=== PATIENT | female | born 1985 | race Caucasian/White ===

== ENCOUNTER 2016-07-20 06:40 | Emergency (ER) | payer MEDICAID ==
[~2016-07-20] VITALS: Ht 160 cm; Wt 77.6 kg
[~2016-07-20 06:40] MED LIST: AMOX/K CLAV875 M1 PO; AMOXICILLIN500 MG PO; AMOXIL400 MG/52 PO; AUGMENTIN400 MG/5 M PO; AUGMENTIN875 MG PO; AUGMENTIN875TAB PO; AUGMENTINES600 PO; BACTRIM DS1 TAB OR; BACTRIM DS1 TAB PO; BENADRYL 50MG C50 MG PO; BENZONATATE200 MG PO; BUSPAR15 MG PO; BUSPIRONE5 MG PO; CEPHALEXIN500 MG PO; CIPRO500 MG OR; CIPRO500 MG PO; CIPROFLOXACN500 MG PO; DARVOCET-N 100100 MG OR; DENIES CURRENT MEDS; DEPO-MEDROL80 MG/ML IM; DOXYCYC MONO100 M1 OR; DOXYCYC MONO100 MG OR; DOXYCYCL HYC100 MG PO; EXCEDRI1 OR; FIORICET OR; FIORICET PO; FLEXERIL PO; FLONASE NASAL50 MCG; GABAPENTIN400 MG PO; HYDROCO/APAP1 T10 OR; HYDROCO/APAP1 TA9 PO; HYDROCODONE/ACE1 TAB PO; KEFLEX500 M1 PO; KEFLEX500 MG OR; KEFLEX500 MG PO; KETOROLAC10 MG PO; KETOROLAC60 MG/2 ML IM; LISINOPRIL10 MG PO; LOMOTIL2.5 MG OR; LORTAB 10 OR; LORTAB 10 PO; LORTAB 10-325 M1 TAB PO; LORTAB 1010 MG PO; LORTAB 5 OR; LORTAB 5-325 MG1 TAB PO; LORTAB 5/3255 MG PO; LORTAB 7.57.5 MG PO; LORTAB5 OR; LORTAB5 PO; MACROBID100 MG OR; METFORMIN500 M1 OR; METFORMIN500 MG PO; METHERGINE0.2 MG PO; MUCINEX600 MG PO; NAPROSYN500 MG OR; NAPROSYN500 MG PO; NO HOME MEDS; NOVOLOG100 IU/1 M SC; PERCOCET 5/325M1 TAB OR; PERCOCET 5/325M1 TAB PO; PREMARIN1.25 MG OR; PRENATA3 OR; PRENATAL1 TA1 PO; PROAIR HFA IN; PROMETHAZINE25 MG OR; PROVERA2.5 MG OR; RELPAX20 MG OR; REPLAX; ROCEPHIN 2250 MG/VIA IM; RYBIX ODT50 MG PO; SULFATRIM1 ML PO; TESSALON PER100 MG PO; TRAMADOL HCL E100 M1 PO; TRAMADOL HCL50 MG PO; TRAZODONE50 MG PO; TYLENOL # 31 TA1 PO; TYLENOL325 MG OR; TYLOPHEN500 MG PO; ULTRAM50 M1 PO; ULTRAM50 MG OR; VALIUM2 MG PO; ZITHROMAX250 MG PO; ZOFRAN ODT8 MG SL; [UNRECOGNIZED DRUG - OTHER]
[2016-07-20 07:49] LABS: HEMOGLOBIN 13.7 g/dl (12.0-16.0); IMMATURE GRANULOCYTES 0.3 % (0.0-1.0); MEAN CORPUSCULAR HGB 31.3 pG CALC (26.0-32.0); MEAN CORPUSCULAR HGB CONC 35.1 g/L CALC (32.0-36.0); NEUT# 8.96 thou/uL (2.00-7.15); RED BLOOD COUNT 4.38 mill/uL (4.20-5.60); RED CELL DISTRI WIDTH 12.7 % (11.5-15.5)
[2016-07-20 07:54] LABS: URINE BILIRUBIN - DIPSTICK NEGATIVE (NEGATIVE); URINE BLOOD DIPSTICK NEGATIVE (NEGATIVE); URINE CLARITY CLEAR; URINE COLOR YELLOW; URINE GLUCOSE - DIPSTICK >=1000 mg/dL (NEGATIVE); URINE KETONE NEGATIVE (NEGATIVE); URINE LEUK ESTERASE NEGATIVE (NEGATIVE); URINE NITRITE - DIPSTICK NEGATIVE (Negative); URINE PH 5.5 (4.5-8.0); URINE PROTEIN - DIPSTICK NEGATIVE (NEG-TRACE); URINE SPECIFIC GRAVITY <=1.005; URINE UROBILINOGEN - DIPSTICK 0.2 E.U./dL (0.2)
[2016-07-20] MEDS ORDERED: LORTAB 10-325 M1 TAB PO (07:58)
[2016-07-20] MEDS ORDERED: BACTRIM DS1 TAB PO (07:58)
[2016-07-20 08:05] LABS: ALBUMIN 4.1 g/dL (3.2-5.0); ALKALINE PHOSPHATASE 189 u/l (38-126); ANION GAP 17 (6-22 (CALC)); BILIRUBIN, TOTAL 0.4 mg/dL (0.0-1.4); BUN 12 mg/dL (7-17); BUN/CREATININE RATIO 19 (12-20 (CALC)); CALCIUM 9.9 mg/dL (8.4-10.2); CARBON DIOXIDE 22 mmol/l (22-30); CHLORIDE 98 mmol/l (95-108); CREATININE 0.6 mg/dL (0.5-1.0); GFR > 60 ML/MIN (>=60 (CALC)); GFR FOR AFR.AMER. > 60 ML/MIN (>=60 (CALC)); POTASSIUM 4.3 mmol/l (3.5-5.1); SGOT/AST 18 u/l (14-36); SGPT/ALT 28 u/l (9-52); SODIUM 134 mmol/l (137-146); TOTAL PROTEIN 7.2 g/dL (6.3-8.2)
[2016-07-20 08:10] LABS: GLUCOSE 478 mg/dL (65-105)
[2016-07-20 08:18] VITALS: BP 125/90
== END 2016-07-20 08:37 | disposition left against medical advice (07) | DRG 603 ==
LOC: ED 06:40
PROVIDERS: Emergency Medicine
PROC: 0H9HXZZ Drainage of Right Upper Leg Skin, External Approach (ICD-10-PCS; principal; 2016-07-20)
DX: L02.214 Cutaneous abscess of groin (principal); B95.4 Other streptococcus as the cause of diseases classified elsewhere

== ENCOUNTER 2016-08-20 09:10 | Emergency (ER) | payer MEDICAID ==
[~2016-08-20] VITALS: Ht 160 cm; Wt 76.0 kg
[2016-08-20 10:38] LABS: HEMATOCRIT 40.8 % (37.0-47.0); IMMATURE GRANULOCYTES 0.4 % (0.0-1.0); MEAN CELL VOLUME 92.7 fL CALC (80.0-100.0); MEAN CORPUSCULAR HGB 31.8 pG CALC (26.0-32.0); MEAN CORPUSCULAR HGB CONC 34.3 g/L CALC (32.0-36.0); NEUT# 6.68 thou/uL (2.00-7.15); RED BLOOD COUNT 4.4 mill/uL (4.20-5.60); RED CELL DISTRI WIDTH 12.7 % (11.5-15.5)
[2016-08-20 10:51] LABS: ALBUMIN 4.2 g/dL (3.2-5.0); ALKALINE PHOSPHATASE 148 u/l (38-126); ANION GAP 16 (6-22 (CALC)); BILIRUBIN, TOTAL 0.4 mg/dL (0.0-1.4); BUN 11 mg/dL (7-17); BUN/CREATININE RATIO 19 (12-20 (CALC)); CALCIUM 9.5 mg/dL (8.4-10.2); CARBON DIOXIDE 24 mmol/l (22-30); CHLORIDE 100 mmol/l (95-108); CREATININE 0.6 mg/dL (0.5-1.0); GFR > 60 ML/MIN (>=60 (CALC)); GFR FOR AFR.AMER. > 60 ML/MIN (>=60 (CALC)); POTASSIUM 4.6 mmol/l (3.5-5.1); SGOT/AST 25 u/l (14-36); SGPT/ALT 26 u/l (9-52); SODIUM 136 mmol/l (137-146); TOTAL PROTEIN 7.3 g/dL (6.3-8.2)
[2016-08-20 11:07] LABS: GLUCOSE 514 mg/dL (65-105)
[2016-08-20] MEDS ORDERED: LEVAQUIN750 MG PO (11:25)
[2016-08-20] MEDS ORDERED: LORTAB 10-325 M1 TAB PO (11:25)
[2016-08-20 11:30] LABS: URINE BILIRUBIN - DIPSTICK NEGATIVE (NEGATIVE); URINE BLOOD DIPSTICK NEGATIVE (NEGATIVE); URINE CLARITY CLEAR; URINE COLOR YELLOW; URINE GLUCOSE - DIPSTICK >=1000 mg/dL (NEGATIVE); URINE KETONE NEGATIVE (NEGATIVE); URINE LEUK ESTERASE NEGATIVE (Negative); URINE NITRITE - DIPSTICK NEGATIVE (Negative); URINE PROTEIN - DIPSTICK NEGATIVE (NEG-TRACE); URINE UROBILINOGEN - DIPSTICK 0.2 E.U./dL (0.2)
[2016-08-20 11:35] VITALS: BP 117/72
== END 2016-08-20 11:36 | disposition home or self-care (01) | DRG 638 ==
LOC: ED 09:10
PROVIDERS: Emergency Medicine
PROC: 0H98XZZ Drainage of Buttock Skin, External Approach (ICD-10-PCS; principal; 2016-08-20)
DX: E11.628 Type 2 diabetes mellitus with other skin complications (principal); L02.31 Cutaneous abscess of buttock; E11.65 Type 2 diabetes mellitus with hyperglycemia; Z79.4 Long term (current) use of insulin; F17.210 Nicotine dependence, cigarettes, uncomplicated

== ENCOUNTER 2016-10-28 12:40 | Emergency (ER) | payer MEDICAID ==
[~2016-10-28] VITALS: Ht 160 cm; Wt 77.0 kg
[~2016-10-28 12:40] MED LIST changes: +LEVAQUIN750 MG PO
[2016-10-28] MEDS ORDERED: LANTUS SOL100 UNIT/M SC (13:10)
[2016-10-28] MEDS ORDERED: GLUCOTROL10 MG PO (13:11)
[2016-10-28] MEDS ORDERED: LOPRESSOR25 M1 PO (13:11)
[2016-10-28] MEDS ORDERED: NOVOLIN 70/30 SC (13:11)
[2016-10-28] MEDS ORDERED: TRAZODONE50 MG PO (13:12)
[2016-10-28] MEDS ORDERED: VALIUM5 MG PO (13:13)
[2016-10-28] MEDS ORDERED: OXYCODONE HCL30 MG PO (13:14)
[2016-10-28] MEDS ORDERED: AMITRIPTYLIN25 MG PO (13:14)
[2016-10-28] MEDS ORDERED: MELOXICAM15 MG PO (13:14)
[2016-10-28] MEDS ORDERED: TIZANIDINE HCL4 MG PO (13:15)
[2016-10-28 14:45] VITALS: BP 128/80
== END 2016-10-28 14:45 | disposition home or self-care (01) | DRG 563 ==
LOC: ED 12:40
DX: S93.601A Unspecified sprain of right foot, initial encounter (principal); S93.401A Sprain of unspecified ligament of right ankle, initial encounter; X50.1XXA Overexertion from prolonged static or awkward postures, initial encounter; W17.2XXA Fall into hole, initial encounter; Y93.01 Activity, walking, marching and hiking; Y92.007 Garden or yard of unspecified non-institutional (private) residence as the place of occurrence of the external cause

== ENCOUNTER 2017-02-18 18:58 | Emergency (ER) | payer MEDICAID ==
[~2017-02-18] VITALS: Ht 160 cm; Wt 73.8 kg
[~2017-02-18 18:58] MED LIST changes: +AMITRIPTYLIN25 MG PO; +GLUCOTROL10 MG PO; +LANTUS SOL100 UNIT/M SC; +LOPRESSOR25 M1 PO; +MELOXICAM15 MG PO; +NOVOLIN 70/30 SC; +OXYCODONE HCL30 MG PO; +TIZANIDINE HCL4 MG PO; +VALIUM5 MG PO
[2017-02-18 19:41] LABS: HEMATOCRIT 46.9 % (37.0-47.0); HEMOGLOBIN 16.7 g/dl (12.0-16.0); IMMATURE GRANULOCYTES 0.2 % (0.0-1.0); MEAN CORPUSCULAR HGB 32.1 pG CALC (26.0-32.0); MEAN CORPUSCULAR HGB CONC 35.6 g/L CALC (32.0-36.0); NEUT# 8.51 thou/uL (2.00-7.15); RED BLOOD COUNT 5.21 mill/uL (4.20-5.60); RED CELL DISTRI WIDTH 13.2 % (11.5-15.5)
[2017-02-18 19:44] LABS: URINE BLOOD DIPSTICK NEGATIVE (NEGATIVE); URINE COLOR YELLOW; URINE GLUCOSE - DIPSTICK >=1000 mg/dL (NEGATIVE); URINE KETONE NEGATIVE (NEGATIVE); URINE LEUK ESTERASE NEGATIVE (NEGATIVE); URINE NITRITE - DIPSTICK NEGATIVE (Negative); URINE PH 5.5 (4.5-8.0); URINE PROTEIN - DIPSTICK 30 mg/dL (NEG-TRACE); URINE SPECIFIC GRAVITY >=1.030; URINE UROBILINOGEN - DIPSTICK 0.2 E.U./dL (0.2)
[2017-02-18 19:45] LABS: URINE BILIRUBIN - DIPSTICK NEGATIVE (NEGATIVE); URINE CLARITY CLEAR
[2017-02-18 19:53] LABS: URINE RBC 0-2 RBC/hpf (0-5); URINE SQUAMOUS EPITHELIAL CELL FEW EPI/hpf (0-FEW); URINE WBC 0-2 WBC/hpf (0-5)
[2017-02-18 19:56] LABS: BARBITURATES NEGATIVE (NEGATIVE); COCAINE NEGATIVE (NEGATIVE); METHADONE NEGATIVE (NEGATIVE); OXCYCODONE NEGATIVE (NEGATIVE); TETRAHYDROCANNABIONOL NEGATIVE (NEGATIVE); TRICYLIC ANTIDEPRESSANTS NEGATIVE (NEGATIVE)
[2017-02-18 20:00] LABS: ALBUMIN 5.5 g/dL (3.2-5.0); ALKALINE PHOSPHATASE 95 u/l (38-126); ANION GAP 25 (6-22 (CALC)); BUN 13 mg/dL (7-17); BUN/CREATININE RATIO 19 (12-20 (CALC)); CALCIUM 10.9 mg/dL (8.4-10.2); CARBON DIOXIDE 18 mmol/l (22-30); CHLORIDE 104 mmol/l (95-108); CREATININE 0.7 mg/dL (0.5-1.0); GFR > 60 ML/MIN (>=60 (CALC)); GFR FOR AFR.AMER. > 60 ML/MIN (>=60 (CALC)); GLUCOSE 298 mg/dL (65-105); LIPASE 117 u/l (23-300); POTASSIUM 4.2 mmol/l (3.5-5.1); SGOT/AST 24 u/l (14-36); SGPT/ALT 37 u/l (9-52); SODIUM 143 mmol/l (137-146); TOTAL PROTEIN 9.1 g/dL (6.3-8.2)
[2017-02-18 22:31] VITALS: BP 138/77
== END 2017-02-18 22:29 | disposition left against medical advice (07) | DRG 392 ==
LOC: ED 18:58 → ED-I 20:00 → ED 20:56
PROVIDERS: Emergency Medicine
DX: K52.9 Noninfective gastroenteritis and colitis, unspecified (principal); E11.65 Type 2 diabetes mellitus with hyperglycemia; F17.210 Nicotine dependence, cigarettes, uncomplicated; R05 Cough; R11.2 Nausea with vomiting, unspecified; R19.7 Diarrhea, unspecified; Z91.19 Patient's noncompliance with other medical treatment and regimen

== ENCOUNTER 2017-04-11 13:04 | Emergency (ER) | payer MEDICAID ==
[~2017-04-11] VITALS: Ht 160 cm; Wt 79.0 kg
[2017-04-11] MEDS ORDERED: CHERATUSSIN PO (13:26)
[2017-04-11] MEDS ORDERED: ZPAK PO (13:26)
[2017-04-11 13:33] VITALS: BP 147/94
== END 2017-04-11 13:39 | disposition home or self-care (01) | DRG 153 ==
LOC: ED 13:04
DX: J06.9 Acute upper respiratory infection, unspecified (principal); E11.9 Type 2 diabetes mellitus without complications; F17.210 Nicotine dependence, cigarettes, uncomplicated; Z79.4 Long term (current) use of insulin; R05 Cough; J02.9 Acute pharyngitis, unspecified; M79.1 Myalgia

== ENCOUNTER 2017-06-06 22:41 | Emergency (ER) | payer MEDICAID ==
[~2017-06-06] VITALS: Ht 160 cm; Wt 77.4 kg
[~2017-06-06 22:41] MED LIST changes: +CHERATUSSIN PO; +ZPAK PO
[2017-06-06] MEDS ORDERED: METFORMIN1000 MG PO (23:02)
[2017-06-06] MEDS ORDERED: CLINDAMYCIN300 M1 PO (23:14)
[2017-06-07 00:11] VITALS: BP 154/109
== END 2017-06-06 23:46 | disposition home or self-care (01) | DRG 159 ==
LOC: ED 22:41
DX: K08.89 Other specified disorders of teeth and supporting structures (principal); E11.9 Type 2 diabetes mellitus without complications; Z79.4 Long term (current) use of insulin

== ENCOUNTER 2017-07-05 17:20 | Emergency (ER) | payer MEDICAID ==
[~2017-07-05] VITALS: Ht 160 cm; Wt 78.0 kg
[~2017-07-05 17:20] MED LIST changes: +CLINDAMYCIN300 M1 PO; +METFORMIN1000 MG PO
[2017-07-05 18:06] LABS: HEMATOCRIT 43.2 % (37.0-47.0); HEMOGLOBIN 14.9 g/dl (12.0-16.0); IMMATURE GRANULOCYTES 0.3 % (0.0-1.0); MEAN CELL VOLUME 88.9 fL CALC (80.0-100.0); MEAN CORPUSCULAR HGB 30.7 pG CALC (26.0-32.0); MEAN CORPUSCULAR HGB CONC 34.5 g/L CALC (32.0-36.0); NEUT# 6.71 thou/uL (2.00-7.15); RED BLOOD COUNT 4.86 mill/uL (4.20-5.60); RED CELL DISTRI WIDTH 13.6 % (11.5-15.5)
[2017-07-05 18:12] LABS: BARBITURATES NEGATIVE (NEGATIVE); COCAINE NEGATIVE (NEGATIVE); METHADONE NEGATIVE (NEGATIVE); OXCYCODONE NEGATIVE (NEGATIVE); TETRAHYDROCANNABIONOL NEGATIVE (NEGATIVE); TRICYLIC ANTIDEPRESSANTS NEGATIVE (NEGATIVE)
[2017-07-05 18:32] LABS: BUN 13 mg/dL (7-17); BUN/CREATININE RATIO 17 (12-20 (CALC)); CHLORIDE 104 mmol/l (95-108); CREATININE 0.8 mg/dL (0.5-1.0); GFR > 60 ML/MIN (>=60 (CALC)); GFR FOR AFR.AMER. > 60 ML/MIN (>=60 (CALC)); POTASSIUM 3.7 mmol/l (3.5-5.1); SODIUM 146 mmol/l (137-146)
[2017-07-05 18:41] LABS: ANION GAP 22 (6-22 (CALC)); CARBON DIOXIDE 24 mmol/l (22-30)
[2017-07-05] MEDS ORDERED: LISINOPRIL20 MG PO (19:41)
[2017-07-05 20:28] LABS: URINE BILIRUBIN - DIPSTICK NEGATIVE (NEGATIVE); URINE BLOOD DIPSTICK NEGATIVE (NEGATIVE); URINE COLOR YELLOW; URINE GLUCOSE - DIPSTICK NEGATIVE (NEGATIVE); URINE KETONE NEGATIVE (NEGATIVE); URINE LEUK ESTERASE NEGATIVE (NEGATIVE); URINE NITRITE - DIPSTICK NEGATIVE (Negative); URINE PH 5.5 (4.5-8.0); URINE PROTEIN - DIPSTICK 30 mg/dL (NEG-TRACE); URINE SPECIFIC GRAVITY >=1.030; URINE UROBILINOGEN - DIPSTICK 0.2 E.U./dL (0.2)
[2017-07-05 20:37] LABS: URINE SQUAMOUS EPITHELIAL CELL FEW EPI/hpf (0-FEW)
[2017-07-05 20:38] LABS: URINE CLARITY CLOUDY
[2017-07-05 21:09] VITALS: BP 135/73
== END 2017-07-05 20:54 | disposition left against medical advice (07) | DRG 313 ==
LOC: ED 17:20
PROVIDERS: Family Medicine
DX: R07.89 Other chest pain (principal); I95.9 Hypotension, unspecified; N39.0 Urinary tract infection, site not specified; R10.84 Generalized abdominal pain; E11.9 Type 2 diabetes mellitus without complications; I10 Essential (primary) hypertension; R19.7 Diarrhea, unspecified; R42 Dizziness and giddiness; R06.02 Shortness of breath; R51 Headache; Z91.19 Patient's noncompliance with other medical treatment and regimen

== ENCOUNTER 2017-08-15 10:11 | Emergency (ER) | payer MEDICAID ==
[~2017-08-15 10:11] MED LIST changes: +LISINOPRIL20 MG PO
[2017-08-16] MEDS ORDERED: CLINDAMYCIN300 M1 PO (09:53)
== END 2017-08-15 10:30 | disposition left against medical advice (07) | DRG 951 ==
LOC: ED 10:11 → LWOBS 10:30
DX: Z91.19 Patient's noncompliance with other medical treatment and regimen (principal)

== ENCOUNTER 2017-08-16 09:11 | Emergency (ER) | payer MEDICAID ==
[~2017-08-16] VITALS: Ht 160 cm; Wt 75.0 kg
[2017-08-16] MEDS ORDERED: CLINDAMYCIN300 M1 PO (09:53)
[2017-08-16 10:00] VITALS: BP 136/90
== END 2017-08-16 10:00 | disposition home or self-care (01) | DRG 159 ==
LOC: ED 09:11
DX: K02.9 Dental caries, unspecified (principal); K04.7 Periapical abscess without sinus

== ENCOUNTER 2017-08-21 22:33 | Emergency (ER) | payer MEDICAID ==
[~2017-08-21] VITALS: Ht 154.9 cm; Wt 77.8 kg
[2017-08-21 23:55] VITALS: BP 129/81
== END 2017-08-21 23:55 | disposition left against medical advice (07) | DRG 103 ==
LOC: ED 22:33
DX: G43.909 Migraine, unspecified, not intractable, without status migrainosus (principal); G90.01 Carotid sinus syncope; E11.9 Type 2 diabetes mellitus without complications; I10 Essential (primary) hypertension; H92.02 Otalgia, left ear

== ENCOUNTER 2018-04-27 20:51 | Emergency (ER) | payer MEDICAID ==
[~2018-04-27] VITALS: Ht 154.9 cm; Wt 74.5 kg
[2018-04-27 21:56] LABS: HEMATOCRIT 42.1 % (37.0-47.0); IMMATURE GRANULOCYTES 0.3 % (0.0-5.0); MEAN CELL VOLUME 88.1 fL CALC (80.0-100.0); MEAN CORPUSCULAR HGB 31.4 pG CALC (26.0-32.0); MEAN CORPUSCULAR HGB CONC 35.6 g/L CALC (32.0-36.0); NEUT# 5.11 thou/uL (2.00-7.15); RED BLOOD COUNT 4.78 mill/uL (4.20-5.60); RED CELL DISTRI WIDTH 12.2 % (11.5-15.5)
[2018-04-27 21:59] LABS: URINE BLOOD DIPSTICK SMALL (NEGATIVE); URINE GLUCOSE - DIPSTICK NEGATIVE (NEGATIVE); URINE KETONE TRACE mg/dL (NEGATIVE); URINE LEUK ESTERASE NEGATIVE (NEGATIVE); URINE NITRITE - DIPSTICK NEGATIVE (Negative); URINE PROTEIN - DIPSTICK 30 mg/dL (NEG-TRACE); URINE SPECIFIC GRAVITY 1.025
[2018-04-27 22:00] LABS: URINE BILIRUBIN - DIPSTICK NEGATIVE (NEGATIVE); URINE COLOR DK. YELLOW
[2018-04-27 22:03] LABS: BARBITURATES NEGATIVE (NEGATIVE); COCAINE NEGATIVE (NEGATIVE); METHADONE NEGATIVE (NEGATIVE); OXCYCODONE NEGATIVE (NEGATIVE); TETRAHYDROCANNABIONOL POSITIVE (NEGATIVE); TRICYLIC ANTIDEPRESSANTS NEGATIVE (NEGATIVE)
[2018-04-27 22:09] LABS: ALBUMIN 5.5 g/dL (3.2-5.0); ALKALINE PHOSPHATASE 81 u/l (38-126); ANION GAP 19 (6-22 (CALC)); BILIRUBIN, TOTAL 1.6 mg/dL (0.0-1.4); BUN 13 mg/dL (7-17); BUN/CREATININE RATIO 16 (12-20 (CALC)); CARBON DIOXIDE 25 mmol/l (22-30); CHLORIDE 102 mmol/l (95-108); CREATININE 0.8 mg/dL (0.5-1.0); GFR > 60 ML/MIN (>=60 (CALC)); GFR FOR AFR.AMER. > 60 ML/MIN (>=60 (CALC)); POTASSIUM 3.2 mmol/l (3.5-5.1); SGOT/AST 41 u/l (14-36); SODIUM 143 mmol/l (137-146); TOTAL PROTEIN 9.3 g/dL (6.3-8.2)
[2018-04-27 22:10] LABS: URINE MUCUS FEW hpf (NONE-FEW); URINE SQUAMOUS EPITHELIAL CELL FEW EPI/hpf (0-FEW); URINE WBC 0-2 WBC/hpf (0-5)
[2018-04-27 22:20] LABS: MYOGLOBIN 90 ng/mL (0 - 62)
[2018-04-27 23:35] VITALS: BP 157/97
== END 2018-04-27 23:35 | disposition home or self-care (01) ==
LOC: ED 20:51
PROVIDERS: Emergency Medicine
DX: F41.9 Anxiety disorder, unspecified (principal); F15.10 Other stimulant abuse, uncomplicated; F12.10 Cannabis abuse, uncomplicated; E87.6 Hypokalemia; R11.2 Nausea with vomiting, unspecified; R51 Headache; R53.1 Weakness

== ENCOUNTER 2018-10-05 20:44 | Emergency (ER) | payer SELFPAY ==
[~2018-10-05] VITALS: Ht 154.9 cm; Wt 81.0 kg
[2018-10-05 22:00] VITALS: BP 129/89
[2018-10-05] MEDS ORDERED: CIPROFLOXACN500 MG PO (22:11)
[2018-10-05] MEDS ORDERED: FIORICET PO (22:11)
== END 2018-10-05 22:25 | disposition home or self-care (01) | DRG 153 ==
LOC: ED 20:44
DX: H66.92 Otitis media, unspecified, left ear (principal); R51 Headache; E11.9 Type 2 diabetes mellitus without complications; F17.210 Nicotine dependence, cigarettes, uncomplicated

== ENCOUNTER 2018-12-15 14:32 | Emergency (ER) | payer SELFPAY ==
[~2018-12-15] VITALS: Ht 154.9 cm; Wt 90.0 kg
[2018-12-15 15:47] VITALS: BP 159/99
[2018-12-15] MEDS ORDERED: CLEOCIN300 MG PO (16:01)
== END 2018-12-15 16:02 | disposition home or self-care (01) | DRG 159 ==
LOC: ED 14:32
DX: K02.9 Dental caries, unspecified (principal); E11.9 Type 2 diabetes mellitus without complications; F17.200 Nicotine dependence, unspecified, uncomplicated; Z79.4 Long term (current) use of insulin

== ENCOUNTER 2019-03-06 13:08 | Emergency (ER) | payer MEDICAID ==
[~2019-03-06] VITALS: Ht 154.9 cm; Wt 72.0 kg
[~2019-03-06 13:08] MED LIST changes: +CLEOCIN300 MG PO
[2019-03-06] MEDS ORDERED: LISINOPRIL20 MG PO (13:46)
[2019-03-06] MEDS ORDERED: GLIPIZIDE5 MG PO (13:47)
[2019-03-06 14:00] LABS: HEMATOCRIT 38.3 % (37.0-47.0); HEMOGLOBIN 13.1 g/dl (12.0-16.0); IMMATURE GRANULOCYTES 0.3 % (0.0-5.0); MEAN CELL VOLUME 88.9 fL CALC (80.0-100.0); MEAN CORPUSCULAR HGB 30.4 pG CALC (26.0-32.0); MEAN CORPUSCULAR HGB CONC 34.2 g/L CALC (32.0-36.0); NEUT# 4.9 thou/uL (2.00-7.15); RED BLOOD COUNT 4.31 mill/uL (4.20-5.60); RED CELL DISTRI WIDTH 12.5 % (11.5-15.5)
[2019-03-06 14:05] LABS: ALBUMIN 4.7 g/dL (3.2-5.0); ALKALINE PHOSPHATASE 74 u/l (38-126); BUN 10 mg/dL (7-17); BUN/CREATININE RATIO 18 (12-20 (CALC)); CHLORIDE 105 mmol/l (95-108); CREATININE 0.6 mg/dL (0.5-1.0); GFR > 60 ML/MIN (>=60 (CALC)); GFR FOR AFR.AMER. > 60 ML/MIN (>=60 (CALC)); SGOT/AST 33 u/l (14-36); SODIUM 137 mmol/l (137-146); TOTAL PROTEIN 8.3 g/dL (6.3-8.2)
[2019-03-06 14:09] LABS: ANION GAP 18 (6-22 (CALC)); BILIRUBIN, TOTAL 0.6 mg/dL (0.0-1.4); CARBON DIOXIDE 19 mmol/l (22-30); POTASSIUM 4.5 mmol/l (3.5-5.1)
[2019-03-06 14:17] LABS: MYOGLOBIN 25 ng/mL (0 - 62)
[2019-03-06 15:21] LABS: URINE BILIRUBIN - DIPSTICK NEGATIVE (NEGATIVE); URINE BLOOD DIPSTICK LARGE (NEGATIVE); URINE COLOR YELLOW; URINE GLUCOSE - DIPSTICK 100 mg/dL (NEGATIVE); URINE KETONE NEGATIVE (NEGATIVE); URINE LEUK ESTERASE NEGATIVE (NEGATIVE); URINE NITRITE - DIPSTICK NEGATIVE (Negative); URINE PROTEIN - DIPSTICK NEGATIVE (NEG-TRACE); URINE SPECIFIC GRAVITY >=1.030; URINE UROBILINOGEN - DIPSTICK 0.2 E.U./dL (0.2)
[2019-03-06 15:30] LABS: URINE RBC TNTC RBC/hpf (0-5); URINE SQUAMOUS EPITHELIAL CELL FEW EPI/hpf (0-FEW)
[2019-03-06] MEDS ORDERED: CLEOCIN300 MG PO (15:49)
[2019-03-06] MEDS ORDERED: BACTRIM DS1 TAB PO (15:49)
[2019-03-06 16:00] VITALS: BP 148/94
== END 2019-03-06 15:58 | disposition home or self-care (01) ==
LOC: ED 13:08
PROVIDERS: Emergency Medicine
DX: L03.011 Cellulitis of right finger (principal); E11.9 Type 2 diabetes mellitus without complications; F17.200 Nicotine dependence, unspecified, uncomplicated; Z79.84 Long term (current) use of oral hypoglycemic drugs; R07.9 Chest pain, unspecified

== ENCOUNTER 2019-04-06 | Emergency (ER) | payer MEDICAID ==
[~2019-04-06] MED LIST changes: +GLIPIZIDE5 MG PO
[2019-04-06 12:59] LABS: HEMATOCRIT 39.4 % (37.0-47.0); IMMATURE GRANULOCYTES 0.3 % (0.0-5.0); MEAN CELL VOLUME 88.9 fL CALC (80.0-100.0); MEAN CORPUSCULAR HGB 29.3 pG CALC (26.0-32.0); NEUT# 6.92 thou/uL (2.00-7.15); RED BLOOD COUNT 4.43 mill/uL (4.20-5.60)
[2019-04-06 13:03] LABS: URINE BILIRUBIN - DIPSTICK NEGATIVE (NEGATIVE); URINE BLOOD DIPSTICK NEGATIVE (NEGATIVE); URINE COLOR YELLOW; URINE GLUCOSE - DIPSTICK >=1000 mg/dL (NEGATIVE); URINE KETONE NEGATIVE (NEGATIVE); URINE LEUK ESTERASE NEGATIVE (NEGATIVE); URINE NITRITE - DIPSTICK NEGATIVE (Negative); URINE PH 5.5 (4.5-8.0); URINE PROTEIN - DIPSTICK NEGATIVE (NEG-TRACE); URINE SPECIFIC GRAVITY 1.025; URINE UROBILINOGEN - DIPSTICK 0.2 E.U./dL (0.2)
[2019-04-06 13:07] LABS: BARBITURATES NEGATIVE (NEGATIVE); COCAINE NEGATIVE (NEGATIVE); METHADONE NEGATIVE (NEGATIVE); OXCYCODONE NEGATIVE (NEGATIVE); TETRAHYDROCANNABIONOL POSITIVE (NEGATIVE); TRICYLIC ANTIDEPRESSANTS NEGATIVE (NEGATIVE)
[2019-04-06 13:13] LABS: ALBUMIN 4.7 g/dL (3.2-5.0); ALKALINE PHOSPHATASE 102 u/l (38-126); BILIRUBIN, TOTAL 0.4 mg/dL (0.0-1.4); BUN 15 mg/dL (7-17); BUN/CREATININE RATIO 22 (12-20 (CALC)); CHLORIDE 102 mmol/l (95-108); CREATININE 0.7 mg/dL (0.5-1.0); GFR > 60 ML/MIN (>=60 (CALC)); GFR FOR AFR.AMER. > 60 ML/MIN (>=60 (CALC)); SGOT/AST 21 u/l (14-36); SODIUM 137 mmol/l (137-146); TOTAL PROTEIN 8.4 g/dL (6.3-8.2)
[2019-04-06 13:19] LABS: ANION GAP 16 (6-22 (CALC)); CARBON DIOXIDE 23 mmol/l (22-30)
[2019-04-06 13:44] LABS: TSH, 3RD GENERATION 2.21 uIU/mL (0.47 - 4.68)
[2019-04-06] MEDS ORDERED: HYDROXYZ HCL25 MG PO (14:26)
[2019-04-06] MEDS ORDERED: TORADOL PO (14:26)
== END 2019-04-06 14:41 | disposition home or self-care (01) | DRG 103 ==
PROVIDERS: Family Medicine
DX: G43.909 Migraine, unspecified, not intractable, without status migrainosus (principal); F41.9 Anxiety disorder, unspecified; E11.9 Type 2 diabetes mellitus without complications; F17.200 Nicotine dependence, unspecified, uncomplicated; Z79.84 Long term (current) use of oral hypoglycemic drugs

== ENCOUNTER 2019-05-15 15:05 | Emergency (ER) | payer SELFPAY ==
[~2019-05-15 15:05] MED LIST changes: +HYDROXYZ HCL25 MG PO; +TORADOL PO
[2019-05-15] MEDS ORDERED: OXYCODONE30 MG PO (15:14)
[2019-05-15] MEDS ORDERED: CLEOCIN300 MG PO (15:38)
[2019-05-15 15:45] VITALS: BP 125/79
== END 2019-05-15 15:45 | disposition home or self-care (01) | DRG 159 ==
LOC: ED 15:05
DX: K04.7 Periapical abscess without sinus (principal); K02.9 Dental caries, unspecified; E11.9 Type 2 diabetes mellitus without complications; F17.210 Nicotine dependence, cigarettes, uncomplicated; Z79.84 Long term (current) use of oral hypoglycemic drugs

== ENCOUNTER 2019-10-01 06:07 | Emergency (ER) | payer OTHER ==
[~2019-10-01] VITALS: Ht 154.9 cm; Wt 72.7 kg
[~2019-10-01 06:07] MED LIST changes: +OXYCODONE30 MG PO
[2019-10-01 06:13] VITALS: BP 172/98
[2019-10-01] MEDS ORDERED: VOLTAREN - GENE75 MG PO (06:32)
[2019-10-01] MEDS ORDERED: CLINDAMYCIN300 M1 PO (06:32)
== END 2019-10-01 06:43 | disposition home or self-care (01) ==
LOC: ED 06:07
DX: K04.7 Periapical abscess without sinus (principal); E11.9 Type 2 diabetes mellitus without complications; F17.210 Nicotine dependence, cigarettes, uncomplicated; Z79.84 Long term (current) use of oral hypoglycemic drugs

== ENCOUNTER 2020-01-27 07:28 | Emergency (ER) | payer OTHER ==
[~2020-01-27] VITALS: Ht 154.9 cm; Wt 65.0 kg
[~2020-01-27 07:28] MED LIST changes: +VOLTAREN - GENE75 MG PO
[2020-01-27] MEDS ORDERED: LISINOPRIL20 M1 PO (08:12)
[2020-01-27] MEDS ORDERED: HUMULIN N100 UNIT/M SC (08:14)
[2020-01-27 08:57] VITALS: BP 122/76
== END 2020-01-27 08:57 | disposition home or self-care (01) ==
LOC: ED 07:28
DX: R51.9 Headache, unspecified (principal); E11.9 Type 2 diabetes mellitus without complications; I10 Essential (primary) hypertension; G43.909 Migraine, unspecified, not intractable, without status migrainosus; F41.9 Anxiety disorder, unspecified; F17.200 Nicotine dependence, unspecified, uncomplicated; Z79.4 Long term (current) use of insulin

== ENCOUNTER 2020-05-27 11:00 | Emergency (ER) | payer OTHER ==
[~2020-05-27] VITALS: Ht 154.9 cm; Wt 67.0 kg
[~2020-05-27 11:00] MED LIST changes: +HUMULIN N100 UNIT/M SC; +LISINOPRIL20 M1 PO
[2020-05-27] MEDS ORDERED: LEVEMIR FL100 UNIT/M SC (11:38)
[2020-05-27] MEDS ORDERED: GABAPENTIN600 MG PO (11:39)
[2020-05-27] MEDS ORDERED: CYCLOBENZAPRINE10 MG PO (11:39)
[2020-05-27] MEDS ORDERED: NAPROXEN500 MG PO (11:40)
[2020-05-27] MEDS ORDERED: CLEOCIN300 MG PO (11:57)
[2020-05-27 12:05] VITALS: BP 147/80
== END 2020-05-27 12:05 | disposition home or self-care (01) ==
LOC: ED 11:00
DX: K02.9 Dental caries, unspecified (principal); E11.9 Type 2 diabetes mellitus without complications; M10.9 Gout, unspecified; M79.7 Fibromyalgia; F41.9 Anxiety disorder, unspecified; F17.200 Nicotine dependence, unspecified, uncomplicated; Z79.4 Long term (current) use of insulin

== ENCOUNTER 2020-06-06 10:08 | Emergency (ER) | payer OTHER ==
[~2020-06-06] VITALS: Ht 154.9 cm; Wt 75.0 kg
[~2020-06-06 10:08] MED LIST changes: +CYCLOBENZAPRINE10 MG PO; +GABAPENTIN600 MG PO; +LEVEMIR FL100 UNIT/M SC; +NAPROXEN500 MG PO
[2020-06-06] MEDS ORDERED: NAPROXEN500 MG PO (11:13)
[2020-06-06 11:27] VITALS: BP 132/87
== END 2020-06-06 11:27 | disposition home or self-care (01) ==
LOC: ED 10:08
DX: G56.02 Carpal tunnel syndrome, left upper limb (principal); S63.502A Unspecified sprain of left wrist, initial encounter; E11.9 Type 2 diabetes mellitus without complications; M10.9 Gout, unspecified; M79.7 Fibromyalgia; F41.9 Anxiety disorder, unspecified; F17.210 Nicotine dependence, cigarettes, uncomplicated; X58.XXXA Exposure to other specified factors, initial encounter; Z79.4 Long term (current) use of insulin

== ENCOUNTER 2020-07-06 | Emergency (ER) | payer OTHER ==
[2020-07-06 10:25] LABS: URINE BILIRUBIN - DIPSTICK NEGATIVE (NEGATIVE); URINE BLOOD DIPSTICK NEGATIVE (NEGATIVE); URINE COLOR YELLOW; URINE GLUCOSE - DIPSTICK >=1000 mg/dL (NEGATIVE); URINE KETONE NEGATIVE (NEGATIVE); URINE LEUK ESTERASE NEGATIVE (NEGATIVE); URINE NITRITE - DIPSTICK NEGATIVE (Negative); URINE PH 5.5 (4.5-8.0); URINE PROTEIN - DIPSTICK NEGATIVE (NEG-TRACE); URINE SPECIFIC GRAVITY <=1.005; URINE UROBILINOGEN - DIPSTICK 0.2 E.U./dL (0.2)
[2020-07-06 10:50] LABS: HEMOGLOBIN 13.1 g/dl (12.0-16.0); IMMATURE GRANULOCYTES 0.4 % (0.0-5.0); MEAN CELL VOLUME 88.8 fL CALC (80.0-100.0); MEAN CORPUSCULAR HGB 29.8 pG CALC (26.0-32.0); MEAN CORPUSCULAR HGB CONC 33.6 g/dL CAL (32.0-36.0); NEUT# 7.41 thou/uL (2.00-7.15); RED BLOOD COUNT 4.39 mill/uL (4.20-5.60); RED CELL DISTRI WIDTH 12.8 % (11.5-15.5)
[2020-07-06 11:18] LABS: ALBUMIN 4.2 g/dL (3.2-5.0); ALKALINE PHOSPHATASE 136 u/l (38-126); BILIRUBIN, TOTAL 0.5 mg/dL (0.0-1.4); BUN 12 mg/dL (7-17); BUN/CREATININE RATIO 17 (12-20 (CALC)); CARBON DIOXIDE 22 mmol/l (22-30); CHLORIDE 98 mmol/l (95-108); CREATININE 0.7 mg/dL (0.5-1.0); GFR > 60 ML/MIN (>=60 (CALC)); GFR FOR AFR.AMER. > 60 ML/MIN (>=60 (CALC)); LIPASE 437 u/l (23-300); POTASSIUM 4.5 mmol/l (3.5-5.1); SGOT/AST 14 u/l (14-36); TOTAL PROTEIN 6.9 g/dL (6.3-8.2)
[2020-07-06 11:24] LABS: ANION GAP 15 (6-22 (CALC)); SODIUM 130 mmol/l (137-146)
== END 2020-07-06 13:56 | disposition home or self-care (01) ==
PROVIDERS: Family Medicine
DX: R10.31 Right lower quadrant pain (principal); R10.11 Right upper quadrant pain; E11.9 Type 2 diabetes mellitus without complications; M10.9 Gout, unspecified; M79.7 Fibromyalgia; F41.9 Anxiety disorder, unspecified; F17.200 Nicotine dependence, unspecified, uncomplicated; Z79.4 Long term (current) use of insulin
CPT/HCPCS: Q9967

== ENCOUNTER 2020-07-27 10:20 | Emergency (ER) | payer OTHER ==
[2020-07-27] MEDS ORDERED: ULTRAM50 MG PO (10:57)
[2020-07-27] MEDS ORDERED: CLEOCIN300 MG PO (10:57)
[2020-07-27 11:20] VITALS: BP 118/68
== END 2020-07-27 11:20 | disposition home or self-care (01) ==
LOC: ED 10:20
DX: E11.9 Type 2 diabetes mellitus without complications (principal); K02.9 Dental caries, unspecified; M10.9 Gout, unspecified; F41.9 Anxiety disorder, unspecified; F17.210 Nicotine dependence, cigarettes, uncomplicated; Z79.4 Long term (current) use of insulin

== ENCOUNTER 2020-10-20 20:38 | Emergency (ER) | payer OTHER ==
[~2020-10-20] VITALS: Ht 154.9 cm; Wt 74.0 kg
[~2020-10-20 20:38] MED LIST changes: +ULTRAM50 MG PO
[2020-10-20] MEDS ORDERED: MOTRIN400 MG/TAB PO (22:46)
[2020-10-20] MEDS ORDERED: ORPHENADRINE C100 MG PO (22:46)
[2020-10-20 22:48] VITALS: BP 139/87
== END 2020-10-20 22:48 | disposition home or self-care (01) | DRG 552 ==
LOC: ED 20:38
DX: M54.2 Cervicalgia (principal); M54.5 Low back pain; R51.9 Headache, unspecified; E11.9 Type 2 diabetes mellitus without complications; M10.9 Gout, unspecified; F41.9 Anxiety disorder, unspecified; M79.7 Fibromyalgia; F17.200 Nicotine dependence, unspecified, uncomplicated; V49.40XA Driver injured in collision with unspecified motor vehicles in traffic accident, initial encounter

== ENCOUNTER 2020-10-30 06:06 | Emergency (ER) | payer OTHER ==
[~2020-10-30 06:06] MED LIST changes: +MOTRIN400 MG/TAB PO; +ORPHENADRINE C100 MG PO
[2020-10-30] MEDS ORDERED: BACTRIM DS1 TAB PO (07:12)
[2020-10-30] MEDS ORDERED: DOXYCYC MONO100 M2 PO (07:12)
[2020-10-30] MEDS ORDERED: LORTAB 1010 MG PO (07:12)
[2020-10-30 07:28] VITALS: BP 132/79
== END 2020-10-30 07:35 | disposition home or self-care (01) ==
LOC: ED 06:06
DX: L02.415 Cutaneous abscess of right lower limb (principal); B95.1 Streptococcus, group B, as the cause of diseases classified elsewhere; E11.9 Type 2 diabetes mellitus without complications; M10.9 Gout, unspecified; F41.9 Anxiety disorder, unspecified; F17.210 Nicotine dependence, cigarettes, uncomplicated; Z79.4 Long term (current) use of insulin

== ENCOUNTER 2020-11-15 06:44 | Emergency (ER) | payer OTHER ==
[~2020-11-15 06:44] MED LIST changes: +DOXYCYC MONO100 M2 PO
== END 2020-11-15 06:58 | disposition left against medical advice (07) | DRG 951 ==
LOC: ED 06:44 → LWOBS 06:58
DX: Z53.21 Procedure and treatment not carried out due to patient leaving prior to being seen by health care provider (principal)

== ENCOUNTER 2021-02-26 19:30 | Emergency (ER) | payer OTHER ==
[~2021-02-26] VITALS: Ht 154.9 cm; Wt 71.0 kg
[2021-02-26 20:55] LABS: HEMATOCRIT 40.8 % (37.0-47.0); HEMOGLOBIN 13.8 g/dl (12.0-16.0); IMMATURE GRANULOCYTES 0.5 % (0.0-5.0); MEAN CELL VOLUME 92.9 fL CALC (80.0-100.0); MEAN CORPUSCULAR HGB 31.4 pG CALC (26.0-32.0); MEAN CORPUSCULAR HGB CONC 33.8 g/dL CAL (32.0-36.0); NEUT# 4.81 thou/uL (2.00-7.15); RED BLOOD COUNT 4.39 mill/uL (4.20-5.60); RED CELL DISTRI WIDTH 12.3 % (11.5-15.5)
[2021-02-26 21:11] LABS: ALBUMIN 4.1 g/dL (3.2-5.0); ALKALINE PHOSPHATASE 93 u/l (38-126); AMYLASE 78 u/l (30-110); BILIRUBIN, TOTAL 0.4 mg/dL (0.0-1.4); BUN 14 mg/dL (7-17); BUN/CREATININE RATIO 17 (12-20 (CALC)); CHLORIDE 101 mmol/l (95-108); CREATININE 0.8 mg/dL (0.5-1.0); GFR > 60 ML/MIN (>=60 (CALC)); GFR FOR AFR.AMER. > 60 ML/MIN (>=60 (CALC)); LIPASE 112 u/l (23-300); POTASSIUM 3.7 mmol/l (3.5-5.1); SGOT/AST 17 u/l (14-36); TOTAL PROTEIN 7.3 g/dL (6.3-8.2)
[2021-02-26 21:12] LABS: ANION GAP 13 (6-22 (CALC)); CARBON DIOXIDE 27 mmol/l (22-30); SODIUM 137 mmol/l (137-146)
[2021-02-26 22:28] LABS: URINE BILIRUBIN - DIPSTICK NEGATIVE (NEGATIVE); URINE BLOOD DIPSTICK NEGATIVE (NEGATIVE); URINE COLOR YELLOW; URINE GLUCOSE - DIPSTICK 500 mg/dL (NEGATIVE); URINE KETONE NEGATIVE (NEGATIVE); URINE LEUK ESTERASE NEGATIVE (NEGATIVE); URINE PH 6.5 (4.5-8.0); URINE PROTEIN - DIPSTICK NEGATIVE (NEG-TRACE); URINE SPECIFIC GRAVITY <=1.005; URINE UROBILINOGEN - DIPSTICK 0.2 E.U./dL (0.2)
[2021-02-26 22:33] LABS: URINE NITRITE - DIPSTICK NEGATIVE (Negative)
[2021-02-27 00:23] VITALS: BP 139/69
== END 2021-02-27 00:29 | disposition home or self-care (01) ==
LOC: ED 19:30
DX: R10.31 Right lower quadrant pain (principal); E11.65 Type 2 diabetes mellitus with hyperglycemia; M10.9 Gout, unspecified; M79.7 Fibromyalgia; M54.9 Dorsalgia, unspecified; G89.29 Other chronic pain; F17.200 Nicotine dependence, unspecified, uncomplicated; Z79.4 Long term (current) use of insulin
CPT/HCPCS: Q9967

== ENCOUNTER 2021-03-25 06:12 | Emergency (ER) | payer OTHER ==
[~2021-03-25] VITALS: Ht 154.9 cm; Wt 71.0 kg
[2021-03-25] MEDS ORDERED: LISINOPRIL10 MG PO (06:39)
[2021-03-25 06:42] LABS: HEMATOCRIT 45.5 % (37.0-47.0); HEMOGLOBIN 15.4 g/dl (12.0-16.0); IMMATURE GRANULOCYTES 0.1 % (0.0-5.0); MEAN CELL VOLUME 92.1 fL CALC (80.0-100.0); MEAN CORPUSCULAR HGB 31.2 pG CALC (26.0-32.0); MEAN CORPUSCULAR HGB CONC 33.8 g/dL CAL (32.0-36.0); NEUT# 6.84 thou/uL (2.00-7.15); RED BLOOD COUNT 4.94 mill/uL (4.20-5.60); RED CELL DISTRI WIDTH 12.3 % (11.5-15.5)
[2021-03-25 06:47] LABS: URINE BLOOD DIPSTICK NEGATIVE (NEGATIVE); URINE COLOR YELLOW; URINE GLUCOSE - DIPSTICK NEGATIVE (NEGATIVE); URINE KETONE 15 mg/dL (NEGATIVE); URINE LEUK ESTERASE NEGATIVE (NEGATIVE); URINE PH 5.5 (4.5-8.0); URINE PROTEIN - DIPSTICK 30 mg/dL (NEG-TRACE); URINE SPECIFIC GRAVITY >=1.030; URINE UROBILINOGEN - DIPSTICK 0.2 E.U./dL (0.2)
[2021-03-25 06:49] LABS: URINE BILIRUBIN - DIPSTICK SMALL (NEGATIVE)
[2021-03-25 06:50] LABS: URINE NITRITE - DIPSTICK NEGATIVE (Negative)
[2021-03-25 06:54] LABS: URINE BACTERIA MODERATE hpf; URINE EPITHELIAL CELLS MANY EPI/hpf (0-FEW)
[2021-03-25 06:59] LABS: ALBUMIN 4.8 g/dL (3.2-5.0); ALKALINE PHOSPHATASE 76 u/l (38-126); AMYLASE 82 u/l (30-110); BUN 17 mg/dL (7-17); BUN/CREATININE RATIO 21 (12-20 (CALC)); CHLORIDE 108 mmol/l (95-108); CREATININE 0.8 mg/dL (0.5-1.0); GFR > 60 ML/MIN (>=60 (CALC)); GFR FOR AFR.AMER. > 60 ML/MIN (>=60 (CALC)); LIPASE 171 u/l (23-300); SGOT/AST 20 u/l (14-36); SODIUM 138 mmol/l (137-146); TOTAL PROTEIN 8.5 g/dL (6.3-8.2)
[2021-03-25 07:00] LABS: ANION GAP 16 (6-22 (CALC)); CARBON DIOXIDE 18 mmol/l (22-30)
[2021-03-25 08:08] VITALS: BP 133/88
== END 2021-03-25 08:08 | disposition home or self-care (01) ==
LOC: ED 06:12
PROVIDERS: Emergency Medicine
DX: G43.909 Migraine, unspecified, not intractable, without status migrainosus (principal); I10 Essential (primary) hypertension; E11.9 Type 2 diabetes mellitus without complications; M10.9 Gout, unspecified; M79.7 Fibromyalgia; F41.9 Anxiety disorder, unspecified; F17.200 Nicotine dependence, unspecified, uncomplicated; Z79.4 Long term (current) use of insulin

== ENCOUNTER 2021-03-29 05:41 | Emergency (ER) | payer OTHER ==
[~2021-03-29] VITALS: Ht 154.9 cm; Wt 71.3 kg
== END 2021-03-29 06:17 | disposition home or self-care (01) ==
LOC: ED 05:41
DX: S61.411A Laceration without foreign body of right hand, initial encounter (principal); E11.9 Type 2 diabetes mellitus without complications; I10 Essential (primary) hypertension; M10.9 Gout, unspecified; M79.7 Fibromyalgia; F17.210 Nicotine dependence, cigarettes, uncomplicated; W27.8XXA Contact with other nonpowered hand tool, initial encounter; Y93.89 Activity, other specified; Z79.4 Long term (current) use of insulin

== ENCOUNTER 2021-06-11 04:27 | Emergency (ER) | payer OTHER ==
[2021-06-11] VITALS (7 sets, daily range): BP systolic 108–138; BP diastolic 73–93
[~2021-06-11] VITALS: Ht 154.9 cm; Wt 71.0 kg
[2021-06-11] MEDS ORDERED: CELEXA10 MG PO (04:55)
[2021-06-11] MEDS ORDERED: ROXICODONE15 M1 PO (04:55)
[2021-06-11 05:04] LABS: URINE BILIRUBIN - DIPSTICK NEGATIVE (NEGATIVE); URINE BLOOD DIPSTICK NEGATIVE (NEGATIVE); URINE COLOR YELLOW; URINE GLUCOSE - DIPSTICK NEGATIVE (NEGATIVE); URINE KETONE NEGATIVE (NEGATIVE); URINE LEUK ESTERASE NEGATIVE (NEGATIVE); URINE PROTEIN - DIPSTICK NEGATIVE (NEG-TRACE); URINE SPECIFIC GRAVITY 1.025; URINE UROBILINOGEN - DIPSTICK 0.2 E.U./dL (0.2)
[2021-06-11 05:08] LABS: URINE NITRITE - DIPSTICK NEGATIVE (Negative)
[2021-06-11 05:09] LABS: HEMATOCRIT 42.7 % (37.0-47.0); HEMOGLOBIN 14.2 g/dl (12.0-16.0); IMMATURE GRANULOCYTES 0.1 % (0.0-5.0); MEAN CELL VOLUME 91.2 fL CALC (80.0-100.0); MEAN CORPUSCULAR HGB 30.3 pG CALC (26.0-32.0); MEAN CORPUSCULAR HGB CONC 33.3 g/dL CAL (32.0-36.0); NEUT# 9.7 thou/uL (2.00-7.15); RED BLOOD COUNT 4.68 mill/uL (4.20-5.60); RED CELL DISTRI WIDTH 13.1 % (11.5-15.5)
[2021-06-11 05:29] LABS: ALBUMIN 4.5 g/dL (3.2-5.0); ALKALINE PHOSPHATASE 70 u/l (38-126); AMYLASE 67 u/l (30-110); BUN 17 mg/dL (7-17); BUN/CREATININE RATIO 21 (12-20 (CALC)); CHLORIDE 107 mmol/l (95-108); CREATININE 0.8 mg/dL (0.5-1.0); GFR > 60 ML/MIN (>=60 (CALC)); GFR FOR AFR.AMER. > 60 ML/MIN (>=60 (CALC)); LIPASE 121 u/l (23-300); POTASSIUM 3.6 mmol/l (3.5-5.1); SGOT/AST 19 u/l (14-36); SODIUM 140 mmol/l (137-146); TOTAL PROTEIN 7.9 g/dL (6.3-8.2)
[2021-06-11 05:44] LABS: ANION GAP 15 (6-22 (CALC)); BILIRUBIN, TOTAL 0.4 mg/dL (0.0-1.4); CARBON DIOXIDE 22 mmol/l (22-30)
== END 2021-06-11 07:36 | disposition home or self-care (01) ==
LOC: ED 04:27
PROVIDERS: Family Medicine
DX: R10.84 Generalized abdominal pain (principal); I10 Essential (primary) hypertension; E11.9 Type 2 diabetes mellitus without complications; M10.9 Gout, unspecified; F41.9 Anxiety disorder, unspecified; F17.210 Nicotine dependence, cigarettes, uncomplicated; Z79.4 Long term (current) use of insulin
CPT/HCPCS: Q9967

== ENCOUNTER 2021-06-30 05:14 | Emergency (ER) | payer OTHER ==
[~2021-06-30] VITALS: Ht 152.4 cm; Wt 67.0 kg
[~2021-06-30 05:14] MED LIST changes: +CELEXA10 MG PO; +ROXICODONE15 M1 PO
[2021-06-30 05:32] VITALS: BP 137/82
[2021-06-30 06:00] VITALS: BP 131/84
[2021-06-30 06:29] LABS: HEMATOCRIT 38.7 % (37.0-47.0); IMMATURE GRANULOCYTES 0.1 % (0.0-5.0); MEAN CELL VOLUME 91.3 fL CALC (80.0-100.0); MEAN CORPUSCULAR HGB 30.7 pG CALC (26.0-32.0); MEAN CORPUSCULAR HGB CONC 33.6 g/dL CAL (32.0-36.0); NEUT# 5.86 thou/uL (2.00-7.15); RED BLOOD COUNT 4.24 mill/uL (4.20-5.60)
[2021-06-30 06:31] LABS: URINE BILIRUBIN - DIPSTICK NEGATIVE (NEGATIVE); URINE BLOOD DIPSTICK NEGATIVE (NEGATIVE); URINE COLOR YELLOW; URINE GLUCOSE - DIPSTICK NEGATIVE (NEGATIVE); URINE KETONE TRACE mg/dL (NEGATIVE); URINE LEUK ESTERASE NEGATIVE (NEGATIVE); URINE PH 5.5 (4.5-8.0); URINE PROTEIN - DIPSTICK NEGATIVE (NEG-TRACE); URINE SPECIFIC GRAVITY >=1.030; URINE UROBILINOGEN - DIPSTICK 0.2 E.U./dL (0.2)
[2021-06-30 06:36] VITALS: BP 152/89
[2021-06-30 06:37] LABS: URINE NITRITE - DIPSTICK NEGATIVE (Negative)
[2021-06-30 06:42] LABS: ALBUMIN 4.1 g/dL (3.2-5.0); ALKALINE PHOSPHATASE 57 u/l (38-126); ANION GAP 12 (6-22 (CALC)); BILIRUBIN, TOTAL 0.5 mg/dL (0.0-1.4); BUN 17 mg/dL (7-17); BUN/CREATININE RATIO 23 (12-20 (CALC)); CARBON DIOXIDE 23 mmol/l (22-30); CHLORIDE 108 mmol/l (95-108); CREATININE 0.7 mg/dL (0.5-1.0); GFR > 60 ML/MIN (>=60 (CALC)); GFR FOR AFR.AMER. > 60 ML/MIN (>=60 (CALC)); POTASSIUM 4.2 mmol/l (3.5-5.1); SGOT/AST 16 u/l (14-36); SODIUM 139 mmol/l (137-146); TOTAL PROTEIN 7.1 g/dL (6.3-8.2)
[2021-06-30 06:54] LABS: MYOGLOBIN 20 ng/mL (0 - 62)
[2021-06-30] MEDS ORDERED: NAPROXEN500 MG PO (06:55)
[2021-06-30] MEDS ORDERED: CYCLOBENZAPRINE10 MG PO (06:55)
[2021-06-30 06:59] VITALS: BP 152/89
== END 2021-06-30 07:07 | disposition home or self-care (01) ==
LOC: ED 05:14
PROVIDERS: Emergency Medicine
DX: M79.7 Fibromyalgia (principal); I10 Essential (primary) hypertension; E11.9 Type 2 diabetes mellitus without complications; M10.9 Gout, unspecified; F41.9 Anxiety disorder, unspecified; F17.200 Nicotine dependence, unspecified, uncomplicated; T38.3X6A Underdosing of insulin and oral hypoglycemic [antidiabetic] drugs, initial encounter; Z91.128 Patient's intentional underdosing of medication regimen for other reason; Z79.4 Long term (current) use of insulin; Z86.16 Personal history of COVID-19; Z20.822 Contact with and (suspected) exposure to COVID-19

== ENCOUNTER 2021-08-30 09:33 | Emergency (ER) | payer OTHER ==
[~2021-08-30] VITALS: Ht 154.9 cm; Wt 59.0 kg
[2021-08-30 09:43] VITALS: BP 140/110
[2021-08-30 09:44] VITALS: BP 151/99
[2021-08-30] MEDS ORDERED: BACTRIM DS1 TAB PO (09:47)
[2021-08-30 10:00] VITALS: BP 148/99
[2021-08-30 10:04] VITALS: BP 148/99
== END 2021-08-30 10:41 | disposition home or self-care (01) ==
LOC: ED 09:33
DX: L02.215 Cutaneous abscess of perineum (principal); I10 Essential (primary) hypertension; E11.9 Type 2 diabetes mellitus without complications; M10.9 Gout, unspecified; M79.7 Fibromyalgia; F41.9 Anxiety disorder, unspecified; F17.200 Nicotine dependence, unspecified, uncomplicated; Z86.16 Personal history of COVID-19; Z79.4 Long term (current) use of insulin

== ENCOUNTER 2021-09-26 09:50 | Emergency (ER) | payer OTHER ==
[~2021-09-26] VITALS: Ht 154.9 cm; Wt 61.2 kg
[2021-09-26 09:56] VITALS: BP 130/85
[2021-09-26] MEDS ORDERED: CLINDAMYCIN300 M1 PO (09:59)
[2021-09-26 10:09] VITALS: BP 130/85
== END 2021-09-26 10:19 | disposition home or self-care (01) ==
LOC: ED 09:50
DX: K08.89 Other specified disorders of teeth and supporting structures (principal); I10 Essential (primary) hypertension; E11.9 Type 2 diabetes mellitus without complications; M10.9 Gout, unspecified; F41.9 Anxiety disorder, unspecified; M79.7 Fibromyalgia; F17.200 Nicotine dependence, unspecified, uncomplicated; Z79.4 Long term (current) use of insulin; Z86.16 Personal history of COVID-19

== ENCOUNTER 2021-12-21 16:21 | Emergency (ER) | payer OTHER ==
[2021-12-22] MEDS ORDERED: LYRICA25 MG PO (13:05)
[2021-12-22] MEDS ORDERED: BACTRIM DS1 TAB PO (14:09)
[2021-12-22] MEDS ORDERED: DOXYCYCLINE100 MG PO (14:09)
== END 2021-12-21 16:50 | disposition left against medical advice (07) | DRG 951 ==
LOC: ED 16:21 → LWOBS 16:50
DX: Z53.21 Procedure and treatment not carried out due to patient leaving prior to being seen by health care provider (principal)

== ENCOUNTER 2021-12-22 12:43 | Emergency (ER) | payer OTHER ==
[~2021-12-22] VITALS: Ht 154.9 cm; Wt 68.0 kg
[2021-12-22 12:59] VITALS: BP 116/84
[2021-12-22] MEDS ORDERED: LYRICA25 MG PO (13:05)
[2021-12-22 13:15] VITALS: BP 105/52
[2021-12-22 13:30] VITALS: BP 102/59
[2021-12-22 13:45] VITALS: BP 108/59
[2021-12-22] MEDS ORDERED: BACTRIM DS1 TAB PO (14:09)
[2021-12-22] MEDS ORDERED: DOXYCYCLINE100 MG PO (14:09)
[2021-12-22 14:36] VITALS: BP 108/59
== END 2021-12-22 14:35 | disposition home or self-care (01) ==
LOC: ED 12:43
DX: N76.2 Acute vulvitis (principal); I10 Essential (primary) hypertension; E11.9 Type 2 diabetes mellitus without complications; M10.9 Gout, unspecified; M79.7 Fibromyalgia; F41.9 Anxiety disorder, unspecified; M54.9 Dorsalgia, unspecified; G89.29 Other chronic pain; F17.210 Nicotine dependence, cigarettes, uncomplicated; Z86.16 Personal history of COVID-19; Z86.14 Personal history of Methicillin resistant Staphylococcus aureus infection; Z79.4 Long term (current) use of insulin

== ENCOUNTER 2021-12-24 07:23 | Emergency (ER) | payer OTHER ==
[~2021-12-24] VITALS: Ht 154.9 cm; Wt 59.0 kg
[~2021-12-24 07:23] MED LIST changes: +DOXYCYCLINE100 MG PO; +LYRICA25 MG PO
[2021-12-24] MEDS ORDERED: BACTRIM DS1 TAB PO (08:19)
[2021-12-24 08:20] VITALS: BP 132/92
== END 2021-12-24 08:26 | disposition home or self-care (01) ==
LOC: ED 07:23
DX: L02.214 Cutaneous abscess of groin (principal); I10 Essential (primary) hypertension; E11.9 Type 2 diabetes mellitus without complications; M79.7 Fibromyalgia; F41.9 Anxiety disorder, unspecified; F17.210 Nicotine dependence, cigarettes, uncomplicated; Z86.16 Personal history of COVID-19; Z79.4 Long term (current) use of insulin

== ENCOUNTER 2022-04-13 10:09 | Emergency (ER) | payer OTHER ==
[~2022-04-13] VITALS: Ht 154.9 cm; Wt 71.2 kg
[2022-04-13] MEDS ORDERED: PREDNISONE50 MG PO (10:25)
[2022-04-13] MEDS ORDERED: PROVENTIL HFA IN (10:25)
[2022-04-13] MEDS ORDERED: DOXY-CAPS100 MG PO (10:25)
[2022-04-13 10:39] VITALS: BP 179/103
== END 2022-04-13 10:51 | disposition home or self-care (01) ==
LOC: ED 10:09
DX: J06.9 Acute upper respiratory infection, unspecified (principal); I10 Essential (primary) hypertension; E11.9 Type 2 diabetes mellitus without complications; M10.9 Gout, unspecified; F41.9 Anxiety disorder, unspecified; M79.7 Fibromyalgia; Z86.16 Personal history of COVID-19; Z79.4 Long term (current) use of insulin

== ENCOUNTER 2022-04-16 10:28 | Emergency (ER) | payer OTHER ==
[~2022-04-16] VITALS: Ht 154.9 cm; Wt 71.2 kg
[2022-04-16] VITALS (11 sets, daily range): BP systolic 123–188; BP diastolic 78–124
[~2022-04-16 10:28] MED LIST changes: +DOXY-CAPS100 MG PO; +PREDNISONE50 MG PO; +PROVENTIL HFA IN
[2022-04-16 11:18] LABS: BASO% 0.2 % (0-3); HEMATOCRIT 34.9 % (37.0-47.0); HEMOGLOBIN 12.3 g/dl (12.0-16.0); IMMATURE GRANULOCYTES 0.2 % (0.0-5.0); LYMPH% 16.9 % (15-41); MEAN CELL VOLUME 90.6 fL CALC (80.0-100.0); MEAN CORPUSCULAR HGB 31.9 pG CALC (26.0-32.0); MEAN CORPUSCULAR HGB CONC 35.2 g/dL CAL (32.0-36.0); NEUT# 12.83 thou/uL (2.00-7.15); NEUT% 73.7 % (42-76); RED BLOOD COUNT 3.85 mill/uL (4.20-5.60); RED CELL DISTRI WIDTH 12.6 % (11.5-15.5)
[2022-04-16 11:31] LABS: ALBUMIN 4.4 g/dL (3.2-5.0); ALKALINE PHOSPHATASE 76 u/l (38-126); ANION GAP 13 (6-22 (CALC)); BILIRUBIN, TOTAL 0.2 mg/dL (0.0-1.4); BUN 11 mg/dL (7-17); BUN/CREATININE RATIO 19 (12-20 (CALC)); CARBON DIOXIDE 21 mmol/l (22-30); CHLORIDE 108 mmol/l (95-108); CPK 34 u/l (30-165); CREATININE 0.6 mg/dL (0.5-1.0); GFR FOR AFR.AMER. > 60 ML/MIN (>=60 (CALC)); GFR OTHER RACES > 60 ML/MIN (>=60 (CALC)); POTASSIUM 4.1 mmol/l (3.5-5.1); SGOT/AST 41 u/l (14-36); SODIUM 137 mmol/l (137-146); TOTAL PROTEIN 7.6 g/dL (6.3-8.2)
[2022-04-16] MEDS ORDERED: PREDNISONE20 MG PO (12:42)
[2022-04-16] MEDS ORDERED: VENTOLIN HFA108 MCG IN (12:42)
== END 2022-04-16 13:12 | disposition home or self-care (01) ==
LOC: ED 10:28
PROVIDERS: Internal Medicine
DX: J06.9 Acute upper respiratory infection, unspecified (principal); I10 Essential (primary) hypertension; E11.9 Type 2 diabetes mellitus without complications; M10.9 Gout, unspecified; F41.9 Anxiety disorder, unspecified; F17.200 Nicotine dependence, unspecified, uncomplicated; Z86.16 Personal history of COVID-19; Z79.4 Long term (current) use of insulin
CPT/HCPCS: J3475

== ENCOUNTER 2022-07-13 05:30 | Emergency (ER) | payer OTHER ==
[~2022-07-13] VITALS: Ht 154.9 cm; Wt 76.0 kg
[2022-07-13] VITALS (12 sets, daily range): BP systolic 124–189; BP diastolic 66–130
[~2022-07-13 05:30] MED LIST changes: +PREDNISONE20 MG PO; +VENTOLIN HFA108 MCG IN
[2022-07-13] MEDS ORDERED: BACLOFEN10 MG PO (07:37)
== END 2022-07-13 08:05 | disposition home or self-care (01) ==
LOC: ED 05:30
DX: F11.23 Opioid dependence with withdrawal (principal); I10 Essential (primary) hypertension; M10.9 Gout, unspecified; E11.9 Type 2 diabetes mellitus without complications; M79.7 Fibromyalgia; F41.9 Anxiety disorder, unspecified; Z86.16 Personal history of COVID-19; M54.9 Dorsalgia, unspecified; G89.29 Other chronic pain; F17.200 Nicotine dependence, unspecified, uncomplicated; Z79.4 Long term (current) use of insulin; T40.2X6A Underdosing of other opioids, initial encounter; Z91.138 Patient's unintentional underdosing of medication regimen for other reason

== ENCOUNTER 2022-08-14 05:26 | Emergency (ER) | payer OTHER ==
[~2022-08-14] VITALS: Ht 154.9 cm; Wt 75.0 kg
[~2022-08-14 05:26] MED LIST changes: +BACLOFEN10 MG PO
[2022-08-14 06:02] LABS: URINE BILIRUBIN - DIPSTICK NEGATIVE (NEGATIVE); URINE BLOOD DIPSTICK NEGATIVE (NEGATIVE); URINE COLOR YELLOW; URINE GLUCOSE - DIPSTICK NEGATIVE (NEGATIVE); URINE KETONE NEGATIVE (NEGATIVE); URINE LEUK ESTERASE NEGATIVE (NEGATIVE); URINE PROTEIN - DIPSTICK NEGATIVE (NEG-TRACE); URINE UROBILINOGEN - DIPSTICK 0.2 E.U./dL (0.2)
[2022-08-14 06:06] LABS: URINE NITRITE - DIPSTICK NEGATIVE (Negative)
[2022-08-14] MEDS ORDERED: NAPROXEN500 MG PO (07:15)
[2022-08-14] MEDS ORDERED: VOLTAREN1%GEL TOP (07:15)
[2022-08-14 07:25] VITALS: BP 134/100
== END 2022-08-14 07:33 | disposition home or self-care (01) ==
LOC: ED 05:26
PROVIDERS: Emergency Medicine
DX: M54.2 Cervicalgia (principal); I10 Essential (primary) hypertension; E11.9 Type 2 diabetes mellitus without complications; M10.9 Gout, unspecified; M79.7 Fibromyalgia; F41.9 Anxiety disorder, unspecified; F17.200 Nicotine dependence, unspecified, uncomplicated; Z86.16 Personal history of COVID-19; Z79.4 Long term (current) use of insulin

== ENCOUNTER 2022-08-21 10:20 | Emergency (ER) | payer OTHER ==
[2022-08-21] VITALS (7 sets, daily range): BP systolic 126–164; BP diastolic 87–114
[~2022-08-21] VITALS: Ht 154.9 cm; Wt 69.4 kg
[~2022-08-21 10:20] MED LIST changes: +VOLTAREN1%GEL TOP
[2022-08-21] MEDS ORDERED: BACTRIM DS1 TAB PO (12:02)
[2022-08-21] MEDS ORDERED: LORTAB 5/3255 MG PO (12:02)
[2022-08-22] MEDS ORDERED: PERCOCET 5/325M1 TAB PO (12:37)
== END 2022-08-21 12:40 | disposition home or self-care (01) ==
LOC: ED 10:20
DX: L02.215 Cutaneous abscess of perineum (principal); I10 Essential (primary) hypertension; E11.9 Type 2 diabetes mellitus without complications; F17.210 Nicotine dependence, cigarettes, uncomplicated; Z86.16 Personal history of COVID-19; Z79.4 Long term (current) use of insulin

== ENCOUNTER 2022-08-22 11:25 | Emergency (ER) | payer OTHER ==
[~2022-08-22] VITALS: Ht 154.9 cm; Wt 69.0 kg
[2022-08-22 11:34] VITALS: BP 118/80
[2022-08-22 11:45] VITALS: BP 125/83
[2022-08-22 12:00] VITALS: BP 117/78
[2022-08-22] MEDS ORDERED: PERCOCET 5/325M1 TAB PO (12:37)
[2022-08-22 12:54] VITALS: BP 117/78
== END 2022-08-22 12:57 | disposition home or self-care (01) ==
LOC: ED 11:25
DX: L02.215 Cutaneous abscess of perineum (principal); I10 Essential (primary) hypertension; E11.9 Type 2 diabetes mellitus without complications; M79.7 Fibromyalgia; F17.200 Nicotine dependence, unspecified, uncomplicated; Z86.16 Personal history of COVID-19; Z79.4 Long term (current) use of insulin

== ENCOUNTER 2022-09-11 15:13 | Emergency (ER) | payer OTHER ==
[~2022-09-11] VITALS: Ht 154.9 cm; Wt 69.8 kg
[2022-09-11 15:18] VITALS: BP 148/93
[2022-09-11 15:30] VITALS: BP 155/91
[2022-09-11] MEDS ORDERED: MEDDOSEPAK PO (15:48)
[2022-09-11] MEDS ORDERED: NAPROXEN500 MG PO (15:48)
[2022-09-11] MEDS ORDERED: METHOCARBAMOL500 MG PO (15:48)
[2022-09-11 16:03] VITALS: BP 155/91
== END 2022-09-11 16:04 | disposition home or self-care (01) ==
LOC: ED 15:13
DX: M54.12 Radiculopathy, cervical region (principal); I10 Essential (primary) hypertension; E11.9 Type 2 diabetes mellitus without complications; M10.9 Gout, unspecified; M79.7 Fibromyalgia; F41.9 Anxiety disorder, unspecified; F17.200 Nicotine dependence, unspecified, uncomplicated; Z86.16 Personal history of COVID-19; Z79.4 Long term (current) use of insulin

== ENCOUNTER 2022-10-24 08:31 | Emergency (ER) | payer SELFPAY ==
[~2022-10-24] VITALS: Ht 154.9 cm; Wt 72.6 kg
[~2022-10-24 08:31] MED LIST changes: +MEDDOSEPAK PO; +METHOCARBAMOL500 MG PO
[2022-10-24 08:41] VITALS: BP 129/101
[2022-10-24 08:42] VITALS: BP 148/99
[2022-10-24 08:45] VITALS: BP 135/87
[2022-10-24] MEDS ORDERED: BACTRIM DS1 TAB PO (08:57)
[2022-10-24] MEDS ORDERED: ZOFRAN4 MG/TAB PO (09:40)
[2022-10-24] MEDS ORDERED: ATIVAN1 M1 PO (09:40)
[2022-10-24 10:03] VITALS: BP 135/87
[2022-10-24] MEDS ORDERED: HYDROCO/APAP1 TA9 PO (13:05)
== END 2022-10-24 10:10 | disposition home or self-care (01) | DRG 603 ==
LOC: ED 08:31
PROC: 0H9AXZZ Drainage of Inguinal Skin, External Approach (ICD-10-PCS; principal; 2022-10-24)
DX: L02.214 Cutaneous abscess of groin (principal); I10 Essential (primary) hypertension; E11.9 Type 2 diabetes mellitus without complications; M10.9 Gout, unspecified; M79.7 Fibromyalgia; F41.9 Anxiety disorder, unspecified; F17.200 Nicotine dependence, unspecified, uncomplicated; Z86.16 Personal history of COVID-19; Z79.4 Long term (current) use of insulin

== ENCOUNTER 2022-11-26 11:03 | Emergency (ER) | payer SELFPAY ==
[~2022-11-26] VITALS: Ht 154.9 cm; Wt 78.6 kg
[~2022-11-26 11:03] MED LIST changes: +ATIVAN1 M1 PO; +ZOFRAN4 MG/TAB PO
[2022-11-26] MEDS ORDERED: NAPROXEN500 MG PO (11:44)
[2022-11-26] MEDS ORDERED: CLINDAMYCIN HY150 MG PO (11:44)
[2022-11-26 11:47] VITALS: BP 137/91
== END 2022-11-26 11:56 | disposition home or self-care (01) | DRG 158 ==
LOC: ED 11:03
DX: K04.7 Periapical abscess without sinus (principal); B37.0 Candidal stomatitis; K02.9 Dental caries, unspecified; I10 Essential (primary) hypertension; E11.9 Type 2 diabetes mellitus without complications; F17.210 Nicotine dependence, cigarettes, uncomplicated; Z86.16 Personal history of COVID-19; Z79.4 Long term (current) use of insulin; Z88.0 Allergy status to penicillin

== ENCOUNTER 2022-12-16 05:55 | Emergency (ER) | payer SELFPAY ==
[~2022-12-16] VITALS: Ht 154.9 cm; Wt 68.5 kg
[~2022-12-16 05:55] MED LIST changes: +CLINDAMYCIN HY150 MG PO
[2022-12-16 07:37] LABS: BASO% 0.9 % (0-3); EOS% 4.3 % (0-8); HEMATOCRIT 34.1 % (37.0-47.0); HEMOGLOBIN 11.6 g/dl (12.0-16.0); IMMATURE GRANULOCYTES 0.1 % (0.0-5.0); LYMPH% 26.9 % (15-41); MEAN CELL VOLUME 93.2 fL CALC (80.0-100.0); MEAN CORPUSCULAR HGB 31.7 pG CALC (26.0-32.0); MONO% 9.1 % (2-13); NEUT# 4.12 thou/uL (2.00-7.15); NEUT% 58.7 % (42-76); RED BLOOD COUNT 3.66 mill/uL (4.20-5.60); RED CELL DISTRI WIDTH 13.3 % (11.5-15.5)
[2022-12-16 07:49] LABS: ALKALINE PHOSPHATASE 66 u/l (38-126); ANION GAP 9 (6-22 (CALC)); BUN 10 mg/dL (7-17); BUN/CREATININE RATIO 13 (12-20 (CALC)); CARBON DIOXIDE 24 mmol/l (22-30); CHLORIDE 108 mmol/l (95-108); CREATININE 0.8 mg/dL (0.5-1.0); GFR FOR AFR.AMER. > 60 ML/MIN (>=60 (CALC)); GFR OTHER RACES > 60 ML/MIN (>=60 (CALC)); SGOT/AST 53 u/l (14-36); SODIUM 137 mmol/l (137-146); TOTAL PROTEIN 6.3 g/dL (6.3-8.2)
[2022-12-16 08:30] LABS: ALBUMIN 3.5 g/dL (3.2-5.0); BILIRUBIN, TOTAL 0.4 mg/dL (0.02-1.3)
[2022-12-16] MEDS ORDERED: LORTAB 5/3255 MG PO ×2 (10:02→10:03)
[2022-12-16] MEDS ORDERED: CLINDAMYCIN300 M1 PO (10:02)
[2022-12-16 10:03] VITALS: BP 130/68
== END 2022-12-16 10:18 | disposition home or self-care (01) | DRG 159 ==
LOC: ED 05:55
PROVIDERS: Emergency Medicine
DX: K04.7 Periapical abscess without sinus (principal); K02.9 Dental caries, unspecified; K08.409 Partial loss of teeth, unspecified cause, unspecified class; I10 Essential (primary) hypertension; E11.9 Type 2 diabetes mellitus without complications; F41.9 Anxiety disorder, unspecified; F17.210 Nicotine dependence, cigarettes, uncomplicated; Z86.16 Personal history of COVID-19; Z79.4 Long term (current) use of insulin

== ENCOUNTER 2023-03-17 12:30 | Emergency (ER) | payer SELFPAY ==
[~2023-03-17] VITALS: Ht 154.9 cm; Wt 72.0 kg
[~2023-03-17 12:30] MED LIST changes: +BLOOD GLUCOSE TEST S VI; +IPRATROPIU0.5 MG/3 M IN; +METFORMIN HCL500 M1 PO; +NEBULIZER NEB; +SERTRALINE50 MG PO
[2023-03-17 12:44] VITALS: BP 127/88
[2023-03-17 13:00] VITALS: BP 123/92
[2023-03-17 13:05] VITALS: BP 123/92
[2023-03-18] MEDS ORDERED: DOXYCYCLINE75 MG PO (09:51)
[2023-03-18] MEDS ORDERED: LISINOPRIL20 M1 PO (10:52)
[2023-03-18] MEDS ORDERED: ATORVASTATIN CA20 MG PO (10:52)
== END 2023-03-17 13:06 | disposition left against medical advice (07) | DRG 153 ==
LOC: ED 12:30
DX: J06.9 Acute upper respiratory infection, unspecified (principal); I10 Essential (primary) hypertension; E11.9 Type 2 diabetes mellitus without complications; F41.9 Anxiety disorder, unspecified; Z86.16 Personal history of COVID-19; Z72.0 Tobacco use; Z53.29 Procedure and treatment not carried out because of patient's decision for other reasons

== ENCOUNTER 2023-03-18 06:18 | Emergency (ER) | payer SELFPAY ==
[2023-03-18] VITALS (13 sets, daily range): BP systolic 113–161; BP diastolic 63–110
[~2023-03-18] VITALS: Ht 154.9 cm; Wt 70.0 kg
[2023-03-18 07:41] LABS: BASO% 0.7 % (0-3); EOS% 2.4 % (0-8); HEMATOCRIT 42.9 % (37.0-47.0); HEMOGLOBIN 14.5 g/dl (12.0-16.0); IMMATURE GRANULOCYTES 0.4 % (0.0-5.0); MEAN CELL VOLUME 90.5 fL CALC (80.0-100.0); MEAN CORPUSCULAR HGB 30.6 pG CALC (26.0-32.0); MEAN CORPUSCULAR HGB CONC 33.8 g/dL CAL (32.0-36.0); MONO% 5.6 % (2-13); NEUT# 6.56 thou/uL (2.00-7.15); NEUT% 60.9 % (42-76); RED BLOOD COUNT 4.74 mill/uL (4.20-5.60)
[2023-03-18 08:12] LABS: ALBUMIN 3.7 g/dL (3.2-5.0); ALKALINE PHOSPHATASE 94 u/l (38-126); ANION GAP 13 (6-22 (CALC)); BILIRUBIN, TOTAL 0.6 mg/dL (0.02-1.3); BUN 16 mg/dL (7-17); BUN/CREATININE RATIO 24 (12-20 (CALC)); CARBON DIOXIDE 20 mmol/l (22-30); CHLORIDE 105 mmol/l (95-108); CREATININE 0.7 mg/dL (0.5-1.0); GFR FOR AFR.AMER. > 60 ML/MIN (>=60 (CALC)); GFR OTHER RACES > 60 ML/MIN (>=60 (CALC)); POTASSIUM 4.2 mmol/l (3.5-5.1); SGOT/AST 23 u/l (14-36); SODIUM 134 mmol/l (137-146); TOTAL PROTEIN 6.4 g/dL (6.3-8.2)
[2023-03-18] MEDS ORDERED: DOXYCYCLINE75 MG PO (09:51)
[2023-03-18] MEDS ORDERED: LISINOPRIL20 M1 PO (10:52)
[2023-03-18] MEDS ORDERED: ATORVASTATIN CA20 MG PO (10:52)
== END 2023-03-18 09:55 | disposition left against medical advice (07) | DRG 189 ==
LOC: ED 06:18
PROVIDERS: Emergency Medicine
DX: J96.01 Acute respiratory failure with hypoxia (principal); L02.214 Cutaneous abscess of groin; J45.909 Unspecified asthma, uncomplicated; E11.65 Type 2 diabetes mellitus with hyperglycemia; I10 Essential (primary) hypertension; F41.9 Anxiety disorder, unspecified; F17.200 Nicotine dependence, unspecified, uncomplicated; Z53.29 Procedure and treatment not carried out because of patient's decision for other reasons; Z86.16 Personal history of COVID-19; Z20.822 Contact with and (suspected) exposure to COVID-19

== ENCOUNTER 2023-03-18 10:31 | Observation (INO) | payer SELFPAY ==
[2023-03-18] VITALS (8 sets, daily range): BP systolic 97–185; BP diastolic 56–115
[~2023-03-18] VITALS: Ht 154.9 cm; Wt 72.5 kg
[~2023-03-18 10:31] MED LIST changes: +DOXYCYCLINE75 MG PO
--- NOTE | 2023-03-18 10:35 | NUR ---
PT AMBULATED TO ROOM 14 WITH STEADY GAIT, NAD NOTED, CALL LIGHT IN REACH, PROVIDER NOTIFIED.
[2023-03-18] MEDS ORDERED: ATORVASTATIN CA20 MG PO (10:52)
[2023-03-18] MEDS ORDERED: LISINOPRIL20 M1 PO (10:52)
--- NOTE | 2023-03-18 12:10 | NUR ---
PT ARRIVED TO MED SURG FROM ER VIA W/C. PT IS ALERT AND ORIENTED X3. PT HAS NO C/O PAIN AT THIS TIME. PT IS WEARING O2 @ 2 LITERS AND SATS @ 96 %; PT BREATHING IS NON LABORED, LUNG SOUNDS COARSE IN LOWER LOBES. PT ABD IS SOFT WITH ACTIVE BS; LAST BM WAS YESTERDAY PER PT. PT HAS ABCESS IN LEFT GROIN, RED AND WARM TO TOUCH. PT BLE FREE FROM ANY EDEMA. PT IV SITE TO LW CLEAN AND INTACT WITH NS INFUSING AT 100 ML/HR. PT AMBULATES WELL TO THE BATHROOM FOR TOILETING. PT HAS CALL LIGHT WITHIN REACH AND SAFETY MEASURES IN PLACE AT THIS TIME.
--- NOTE | 2023-03-18 12:20 | NUR ---
REPORT PROVIDED TO [facility] NURSE. PT GATHERED ALL BELONINGS PRIOR TO DEPARTURE.
--- NOTE | 2023-03-18 14:40 | NUR ---
S: OLIVIER TOMLINSON is a 37 F who presents with acute respiratory failure and abscess of left groin. She has a history of DM, HTN, gout, fibromyalgia, and chronic back pain. All medications in patient's chart were reviewed. O: VS: BP 125/87, P 73, RR 10, T 97.9 W 72.5 kg, HT 61 in, Scr=0.7, CrCl= 100.2 ml/min A: No cultures pending. P: Patient is on levofloxacin 750 mg IV q24h. Vancomycin ordered for pharmacy to dose. Start Vancomycin 1250 mg IV Q12H. Vancomycin trough is drawn before the 4th dose on 03/20/23@0330. Vancomycin goal trough is between 10-15 mcg/ml. Pharmacy will follow and or advise on antibiotics use as needed.
--- NOTE | 2023-03-18 16:00 | NUR ---
PT IN BED WITH VISITORS IN . PT HAS NO C/O PAIN AT THIS TIME. IV ANTIBIOTICS INFUSING. PT HAS CALL LIGHT WITHIN REACH AND SAFETY MEASURES IN PLACE AT THIS TIME.
--- NOTE | 2023-03-18 16:34 | NUR ---
PT BS 568, DR. ARNOLD NOTIFIED. AWAITING NEW ORDERS. PT IS ASYMPTOMATIC AT THIS TIME.
--- NOTE | 2023-03-18 17:06 | NUR ---
ORDERS RECIEVED FOR 12 UNITS OF HUMOLOG TO BE GIVEN AND NS RATE INCREASED TO 200 ML/HR. PT HAS NO C/O PAIN AT THIS TIME. PT MOVED FROM RM 264 TO RM 262; TV IN 264 NOT WORKING.
--- NOTE | 2023-03-18 17:55 | NUR ---
RECHECK BS 438
--- NOTE | 2023-03-18 20:00 | NUR ---
RECEIVED REPORT FROM NURSE ERASMO, PATIENT ALERT ORIENTED, AMBULATORY, IV ON LEFT WRIST G 20 NS@ 200CC/HR INFUSING WELL, PATIENT ON O2 @ 2LPM VIA NC SPO2 @ 93% ON ROOM AIR, DIMINISHED LUNG SOUNDS ON BASES, BS OBTAINED 417 MD AWARE ORDERED 20 UNITS OF HUMALOG.CALL LIGHT IN REACH.
--- NOTE | 2023-03-19 00:02 | NUR ---
GLUCOSE RECHECKED 270, PATIENT SPO2 97% ON ROOM AIR.
--- NOTE | 2023-03-19 00:45 | NUR ---
PATIENT C/O PAIN ON IV SITE, LEAKING, REMOVED IV, CATHETER INTACT, NEW IV INSERTED ON RFA 22 PATENT FLSUHES WELL, PATINET IV RECONNECTED.
--- NOTE | 2023-03-19 01:05 | NUR ---
MD MADE AWARE OF IV RATE 200CC/HR NO CHANGES MADE.
[2023-03-19 04:07] VITALS: BP 92/48
--- NOTE | 2023-03-19 04:34 | NUR ---
CORINNANET RESTING IN BED, DUE VANCOMYCIN CURRENTLY INFUSING CALL LIGHT IN REACH, BREATHING UNLABORED.
[2023-03-19 06:01] LABS: BASO% 0.2 % (0-3); EOS% 0.1 % (0-8); IMMATURE GRANULOCYTES 0.3 % (0.0-5.0); LYMPH% 25.5 % (15-41); MEAN CELL VOLUME 91.5 fL CALC (80.0-100.0); MEAN CORPUSCULAR HGB 31.3 pG CALC (26.0-32.0); MEAN CORPUSCULAR HGB CONC 34.2 g/dL CAL (32.0-36.0); MONO% 6.4 % (2-13); NEUT# 10.04 thou/uL (2.00-7.15); NEUT% 67.5 % (42-76); RED BLOOD COUNT 3.77 mill/uL (4.20-5.60); RED CELL DISTRI WIDTH 12.9 % (11.5-15.5)
[2023-03-19 06:12] LABS: HEMATOCRIT 34.5 % (37.0-47.0); HEMOGLOBIN 11.8 g/dl (12.0-16.0)
[2023-03-19 06:15] LABS: ALBUMIN 3.3 g/dL (3.2-5.0); ALKALINE PHOSPHATASE 84 u/l (38-126); ANION GAP 11 (6-22 (CALC)); BUN 15 mg/dL (7-17); BUN/CREATININE RATIO 23 (12-20 (CALC)); CARBON DIOXIDE 20 mmol/l (22-30); CHLORIDE 110 mmol/l (95-108); CREATININE 0.7 mg/dL (0.5-1.0); GFR FOR AFR.AMER. > 60 ML/MIN (>=60 (CALC)); GFR OTHER RACES > 60 ML/MIN (>=60 (CALC)); MAGNESIUM 1.6 mg/dL (1.6-2.3); POTASSIUM 4.3 mmol/l (3.5-5.1); SGOT/AST 16 u/l (14-36); SODIUM 137 mmol/l (137-146); TOTAL PROTEIN 5.8 g/dL (6.3-8.2)
[2023-03-19 06:16] LABS: BILIRUBIN, TOTAL 0.3 mg/dL (0.02-1.3)
[2023-03-19 06:42] VITALS: BP 111/56
--- NOTE | 2023-03-19 07:39 | NUR ---
PT REQUESTING TO LEAVE AMA. DISCUSSED WITH PT RISK OF LEAVING AMA. PT STATES SHE IS BETTER AND IS READY TO GET OUT OF HERE. PT SIGNED AMA FORMS, IV REMOVED AND PT WALKED TO THE ELEVATOR BY STAFF. PROVIDER NOTIFIED.
== END 2023-03-19 07:44 | disposition left against medical advice (07) | DRG 189 ==
LOC: ED 10:31 → ED-I 10:50 → ED 10:58 → MS2 10:59
PROVIDERS: ADMIT Student in an Organized Health Care Education/Training Program; ATTEND Student in an Organized Health Care Education/Training Program
DX: J96.01 Acute respiratory failure with hypoxia (principal); L02.416 Cutaneous abscess of left lower limb; L02.214 Cutaneous abscess of groin; E11.65 Type 2 diabetes mellitus with hyperglycemia; I10 Essential (primary) hypertension; F17.200 Nicotine dependence, unspecified, uncomplicated; Z86.16 Personal history of COVID-19; Z20.822 Contact with and (suspected) exposure to COVID-19; R05.9 Cough, unspecified; J45.909 Unspecified asthma, uncomplicated; F41.9 Anxiety disorder, unspecified; Z53.29 Procedure and treatment not carried out because of patient's decision for other reasons
CPT/HCPCS: G0378; J1650; J3370

== ENCOUNTER 2023-10-05 13:46 | Emergency (ER) | payer OTHER ==
[~2023-10-05] VITALS: Ht 154.9 cm; Wt 68.0 kg
[2023-10-05] VITALS (7 sets, daily range): BP systolic 74–142; BP diastolic 51–111
[~2023-10-05 13:46] MED LIST changes: +AMOXICILLIN500 M2 PO; +ATORVASTATIN CA20 MG PO; +CLOBETASOL0.05 % EX; +LEVOFLOXACIN500MG PO
[2023-10-05] MEDS ORDERED: ACETAMINOPHEN 325 MG/TAB PO ONE (14:30)
[2023-10-05] MEDS ORDERED: IBUPROFEN 200 MG/TAB PO ONE (14:30)
[2023-10-05] MEDS ORDERED: Diph, Acellular Pertussis, Tet 0.5 ML/VIAL (Tdap) SDV IM ONE (14:30)
== END 2023-10-05 16:57 | disposition home or self-care (01) | DRG 556 ==
LOC: ED 13:46
DX: M25.571 Pain in right ankle and joints of right foot (principal); E11.9 Type 2 diabetes mellitus without complications; I10 Essential (primary) hypertension; F41.9 Anxiety disorder, unspecified; F17.200 Nicotine dependence, unspecified, uncomplicated; Z86.16 Personal history of COVID-19; W17.2XXA Fall into hole, initial encounter; Y99.0 Civilian activity done for income or pay

== ENCOUNTER 2023-11-05 00:02 | Emergency (ER) | payer SELFPAY ==
[~2023-11-05] VITALS: Ht 154.9 cm; Wt 78.0 kg
[2023-11-05] MEDS ORDERED: LEVEMIR100 UNIT SC (00:28)
[2023-11-05] MEDS ORDERED: LISINOPRIL40 MG PO (00:30)
[2023-11-05] MEDS ORDERED: SUBOXONE1 MI1 (00:31)
[2023-11-05] MEDS ORDERED: DOXYCYCL HYC100 M4 PO (01:13)
[2023-11-05] MEDS ORDERED: NAPROXEN500 MG PO (01:13)
[2023-11-05] MEDS ORDERED: CHLORHEX GLU0.12 % MT (01:13)
[2023-11-05] MEDS ORDERED: DOXYCYCLINE HYCLATE 100 MG/CAP PO ONE (01:15)
[2023-11-05] MEDS ORDERED: ONDANSETRON 4 MG/TAB ODT SL ONE (01:15)
[2023-11-05] MEDS ORDERED: SULFAMETHOXAZOLE W/TRIMETHOPRI 1 COMBO TAB PO ONE (01:15)
[2023-11-05] MEDS ORDERED: KETOROLAC TROMETHAMINE 30 MG/ML SDV IM ONE (01:15)
[2023-11-05] MEDS ORDERED: HYDROcodone 7.5 MG/Acetaminophen 325 MG/COMBO PO ONE (01:15)
[2023-11-05 02:08] VITALS: BP 131/89
== END 2023-11-05 02:08 | disposition home or self-care (01) | DRG 158 ==
LOC: ED 00:02
DX: K08.89 Other specified disorders of teeth and supporting structures (principal); L03.116 Cellulitis of left lower limb; I10 Essential (primary) hypertension; E11.9 Type 2 diabetes mellitus without complications; F17.200 Nicotine dependence, unspecified, uncomplicated; Z86.16 Personal history of COVID-19; Z79.4 Long term (current) use of insulin

== ENCOUNTER 2023-11-07 00:30 | Emergency (ER) | payer SELFPAY ==
[~2023-11-07] VITALS: Ht 154.9 cm; Wt 71.0 kg
[~2023-11-07 00:30] MED LIST changes: +CHLORHEX GLU0.12 % MT; +DOXYCYCL HYC100 M4 PO; +LEVEMIR100 UNIT SC; +LISINOPRIL40 MG PO; +SUBOXONE1 MI1
[2023-11-07] MEDS ORDERED: SODIUM CHLORIDE 0.9% 1,000 ML IV STA (00:53)
[2023-11-07] MEDS ORDERED: DiphenhydrAMINE HCL 50 MG/ML SDV IV ONE (00:55)
[2023-11-07] MEDS ORDERED: PROMETHAZINE HCL 25 MG/ML AMP IV ONE (00:55)
[2023-11-07] MEDS ORDERED: KETOROLAC TROMETHAMINE 30 MG/ML SDV IV ONE (00:55)
[2023-11-07 01:24] LABS: BASO% 0.3 % (0-3); EOS% 0.6 % (0-8); HEMATOCRIT 37.6 % (37.0-47.0); HEMOGLOBIN 12.9 g/dl (12.0-16.0); IMMATURE GRANULOCYTES 0.1 % (0.0-5.0); LYMPH% 24.4 % (15-41); MEAN CELL VOLUME 90.6 fL CALC (80.0-100.0); MEAN CORPUSCULAR HGB 31.1 pG CALC (26.0-32.0); MEAN CORPUSCULAR HGB CONC 34.3 g/dL CAL (32.0-36.0); MONO% 8.4 % (2-13); NEUT# 5.79 thou/uL (2.00-7.15); NEUT% 66.2 % (42-76); RED BLOOD COUNT 4.15 mill/uL (4.20-5.60); RED CELL DISTRI WIDTH 12.4 % (11.5-15.5)
[2023-11-07 01:34] LABS: ALBUMIN 4.6 g/dL (3.2-5.0); ALKALINE PHOSPHATASE 78 u/l (38-126); ANION GAP 12 (6-22 (CALC)); BILIRUBIN, TOTAL 0.6 mg/dL (0.02-1.3); BUN 22 mg/dL (7-17); BUN/CREATININE RATIO 18 (12-20 (CALC)); CARBON DIOXIDE 18 mmol/l (22-30); CHLORIDE 112 mmol/l (95-108); CREATININE 1.2 mg/dL (0.5-1.0); ESTIMATED GFR 59 ML/MIN (>=90 (CALC)); LIPASE 42 u/l (23-300); POTASSIUM 4.2 mmol/l (3.5-5.1); SGOT/AST 22 u/l (14-36); SODIUM 137 mmol/l (137-146); TOTAL PROTEIN 8.2 g/dL (6.3-8.2)
[2023-11-07 01:51] LABS: URINE BLOOD DIPSTICK Trace-lysed (NEGATIVE); URINE COLOR Yellow; URINE GLUCOSE - DIPSTICK 100 mg/dL (NEGATIVE); URINE KETONE Trace mg/dL (NEGATIVE); URINE LEUK ESTERASE Negative (NEGATIVE); URINE NITRITE - DIPSTICK Negative (Negative); URINE PROTEIN - DIPSTICK Trace mg/dL (NEG-TRACE); URINE SPECIFIC GRAVITY >=1.030; URINE UROBILINOGEN - DIPSTICK 0.2 E.U./dL (0.2)
[2023-11-07 02:00] VITALS: BP 186/101
[2023-11-07 02:02] VITALS: BP 187/98
[2023-11-07 03:01] VITALS: BP 164/99
[2023-11-07 03:30] VITALS: BP 164/93
[2023-11-07] MEDS ORDERED: Acetaminophen 300 MG/Codeine 30 MG/COMBO PO ONE (03:30)
[2023-11-07] MEDS ORDERED: Polyethylene Glycol 3350 17 GM/PKT PO ONE (03:35)
[2023-11-07] MEDS ORDERED: MAGNESIUM CITRATE 296 ML/BTL PO ONE (03:35)
[2023-11-07] MEDS ORDERED: MIRALAX17 GM PO (03:36)
[2023-11-07 03:55] VITALS: BP 164/93
== END 2023-11-07 03:55 | disposition home or self-care (01) | DRG 392 ==
LOC: ED 00:30
PROVIDERS: Family Medicine
DX: K59.00 Constipation, unspecified (principal); I10 Essential (primary) hypertension; E11.9 Type 2 diabetes mellitus without complications; F17.200 Nicotine dependence, unspecified, uncomplicated; Z86.16 Personal history of COVID-19; Z79.4 Long term (current) use of insulin; Z20.822 Contact with and (suspected) exposure to COVID-19

== ENCOUNTER 2023-11-27 16:06 | Emergency (ER) | payer SELFPAY ==
[~2023-11-27] VITALS: Ht 154.9 cm; Wt 72.5 kg
[~2023-11-27 16:06] MED LIST changes: +MIRALAX17 GM PO
[2023-11-27 16:33] VITALS: BP 145/89
[2023-11-27] MEDS ORDERED: CLINDAMYCIN HCL 150 MG CAP PO ONE ×2 (16:35)
[2023-11-27] MEDS ORDERED: KETOROLAC TROMETHAMINE 30 MG/ML SDV IM ONE (16:35)
[2023-11-27 16:45] VITALS: BP 149/90
[2023-11-27] MEDS ORDERED: AMOXICILLIN & POT CLAVULANATE 875 MG/TAB PO ONE (16:50)
[2023-11-27] MEDS ORDERED: DEXAMETHASONE SOD. PHOSPHATE 10 MG/ML VIAL IM ONE (16:50)
[2023-11-27 17:00] VITALS: BP 149/96
[2023-11-27] MEDS ORDERED: AMOX/K CLAV875 M1 PO (17:02)
[2023-11-27] MEDS ORDERED: ZOFRAN4 MG/TAB PO (17:02)
[2023-11-27] MEDS ORDERED: MOTRIN800 MG PO (17:02)
[2023-11-27 17:15] VITALS: BP 163/92
[2023-11-27 17:18] VITALS: BP 157/100
== END 2023-11-27 17:20 | disposition home or self-care (01) | DRG 159 ==
LOC: ED 16:06
DX: K04.7 Periapical abscess without sinus (principal); K02.9 Dental caries, unspecified; K03.81 Cracked tooth; E11.9 Type 2 diabetes mellitus without complications; I10 Essential (primary) hypertension; M10.9 Gout, unspecified; M79.7 Fibromyalgia; F17.200 Nicotine dependence, unspecified, uncomplicated; Z86.16 Personal history of COVID-19; Z79.4 Long term (current) use of insulin; Z88.0 Allergy status to penicillin; Z79.891 Long term (current) use of opiate analgesic

== ENCOUNTER 2023-12-01 09:26 | Emergency (ER) | payer OTHER ==
[~2023-12-01] VITALS: Ht 154.9 cm; Wt 73.9 kg
[2023-12-01] VITALS (14 sets, daily range): BP systolic 119–175; BP diastolic 67–97
[~2023-12-01 09:26] MED LIST changes: +MOTRIN800 MG PO
[2023-12-01 09:59] LABS: BASO% 0.6 % (0-3); EOS% 1.7 % (0-8); HEMATOCRIT 38.6 % (37.0-47.0); HEMOGLOBIN 13.4 g/dl (12.0-16.0); IMMATURE GRANULOCYTES 0.1 % (0.0-5.0); LYMPH% 32.8 % (15-41); MEAN CORPUSCULAR HGB 31.6 pG CALC (26.0-32.0); MEAN CORPUSCULAR HGB CONC 34.7 g/dL CAL (32.0-36.0); MONO% 6.7 % (2-13); NEUT# 6.8 thou/uL (2.00-7.15); NEUT% 58.1 % (42-76); RED BLOOD COUNT 4.24 mill/uL (4.20-5.60)
[2023-12-01 10:05] LABS: ALBUMIN 4.7 g/dL (3.2-5.0); BILIRUBIN, TOTAL 0.7 mg/dL (0.02-1.3); CREATININE 0.8 mg/dL (0.5-1.0); POTASSIUM 3.4 mmol/l (3.5-5.1); TOTAL PROTEIN 8.1 g/dL (6.3-8.2)
[2023-12-01 10:16] LABS: URINE BILIRUBIN - DIPSTICK Negative (NEGATIVE); URINE BLOOD DIPSTICK Negative (NEGATIVE); URINE GLUCOSE - DIPSTICK 500 mg/dL (NEGATIVE); URINE KETONE 15 mg/dL (NEGATIVE); URINE LEUK ESTERASE Negative (NEGATIVE); URINE NITRITE - DIPSTICK Negative (Negative); URINE PROTEIN - DIPSTICK Trace mg/dL (NEG-TRACE); URINE SPECIFIC GRAVITY 1.025; URINE UROBILINOGEN - DIPSTICK 0.2 E.U./dL (0.2)
[2023-12-01 10:20] LABS: URINE COLOR Yellow
[2023-12-01] MEDS ORDERED: SODIUM CHLORIDE 0.9% 1,000 ML IV ONE (10:25)
[2023-12-01] MEDS ORDERED: ONDANSETRON HCl 4 MG/2 ML SDV IV ONE (10:25)
[2023-12-01] MEDS ORDERED: KETOROLAC TROMETHAMINE 30 MG/ML SDV IV ONE (12:10)
== END 2023-12-01 14:01 | disposition home or self-care (01) | DRG 761 ==
LOC: ED 09:26
PROVIDERS: Family Medicine
DX: N83.291 Other ovarian cyst, right side (principal); E11.9 Type 2 diabetes mellitus without complications; I10 Essential (primary) hypertension; F41.9 Anxiety disorder, unspecified; T38.3X6A Underdosing of insulin and oral hypoglycemic [antidiabetic] drugs, initial encounter; Z91.120 Patient's intentional underdosing of medication regimen due to financial hardship; M10.9 Gout, unspecified; M79.7 Fibromyalgia; F17.200 Nicotine dependence, unspecified, uncomplicated; Z86.16 Personal history of COVID-19; Z79.4 Long term (current) use of insulin
CPT/HCPCS: Q9967

== ENCOUNTER 2023-12-11 13:14 | Emergency (ER) | payer OTHER ==
[~2023-12-11] VITALS: Ht 157.5 cm; Wt 73.9 kg
[2023-12-11 13:19] VITALS: BP 193/96
[2023-12-11 13:21] VITALS: BP 172/85
[2023-12-11] MEDS ORDERED: KETOROLAC TROMETHAMINE 30 MG/ML SDV IM ONE (13:45)
[2023-12-11] MEDS ORDERED: AMOX/K CLAV875 M1 PO (13:47)
[2023-12-11] MEDS ORDERED: METRONIDAZOLE500 MG PO (13:47)
[2023-12-11 13:55] VITALS: BP 148/90
[2023-12-11 13:58] VITALS: BP 148/90
== END 2023-12-11 14:02 | disposition home or self-care (01) ==
LOC: ED 13:14
DX: K04.7 Periapical abscess without sinus (principal); I10 Essential (primary) hypertension; E11.9 Type 2 diabetes mellitus without complications; F41.9 Anxiety disorder, unspecified; F17.210 Nicotine dependence, cigarettes, uncomplicated; Z86.16 Personal history of COVID-19; Z79.4 Long term (current) use of insulin; Z88.1 Allergy status to other antibiotic agents

== ENCOUNTER 2024-04-18 17:01 | Emergency (ER) | payer OTHER ==
[~2024-04-18] VITALS: Ht 157.5 cm; Wt 65.0 kg
[~2024-04-18 17:01] MED LIST changes: +IBUPROFEN600 MG PO; +METRONIDAZOLE500 MG PO; +TRAMADOL HYDROC50 M1 PO
[2024-04-18 17:42] VITALS: BP 197/108
== END 2024-04-18 18:44 | disposition left against medical advice (07) | DRG 951 ==
LOC: ED 17:01 → LWOBS 18:20
DX: Z53.21 Procedure and treatment not carried out due to patient leaving prior to being seen by health care provider (principal)